=== PATIENT | male | born 1950 | race Caucasian/White ===

== ENCOUNTER 2018-04-21 15:00 | Inpatient (IN) | payer OTHER ==
--- NOTE | 2018-05-23 12:40 | HP ---
AMENDED REPORT NOW INCLUDES COSIGNER DESIGNATION HISTORY AND PHYSICAL: DATE ADMISSION/PROCEDURE: 05/26/18 ATTENDING SURGEON: Dr. Rivas * (DICTATED BY CHAD BENITO) HISTORY OF PRESENT ILLNESS: Mr. 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 He has been authorized for Worker's Compensation for a left total knee arthroplasty, which will be performed on 05/26/18. He has failed conservative management and would like to proceed. PAST MEDICAL HISTORY: Osteoarthritis. PAST SURGICAL HISTORY: 1. Umbilical hernia repair. 2. Multiple surgeries to the right calf. MEDICATIONS: Augmentin for sinus trouble, which was started 2 days ago. Otherwise, no other active medications. ALLERGIES: SULFA ANTIBIOTICS, positive reaction. FAMILY HISTORY: Maternal heart disease and stroke. Paternal heart disease, 3 siblings with diabetes, hypertension, and cancer. SOCIAL HISTORY: The patient works at [employer]. Denies any smoking or illicit drug use. He states he drinks alcohol. He is normally an independent ambulator and right-hand dominant. REVIEW OF SYSTEMS: General: The patient denies fevers, chills or night sweats. No known anesthesia problems. HEENT: The patient admits to sinus headaches. Denies any lightheadedness or syncopal episodes. Admits to runny nose. Cardiothoracic: The patient denies any chest pain or heart palpitations. Pulmonary: The patient denies any shortness of breath with exertion, chronic cough, or COPD. GI: The patient denies any nausea, vomiting, diarrhea, or constipation. : The patient denies any nocturia, urinary frequency, or urgency. MSK: The patient denies any chronic or intermittent back pain or fractures. Neuro: The patient denies any paresthesias, numbness, or seizures. Integument: The patient denies any abrasions, lesions or rashes, lumps or open sores. PHYSICAL EXAMINATION GENERAL: The patient is alert and oriented x3. Appropriate mood and affect, appropriate dress and hygiene. HEENT: Normocephalic, atraumatic. Hearing and vision are grossly intact. PULMONARY: Lungs are clear to auscultation bilaterally. No wheezes or rales. CARDIO: Regular rate and rhythm, normal S1, S2. No appreciable S3 or S4. No murmurs, rubs, or gallops. MSK: Left lower extremity: Inspection of left lower extremity reveals no erythema or ecchymosis. Skin is warm, dry and intact. He has a moderate effusion about the knee. Tenderness along the medial and lateral joint line. Range of motion is full extension to 100 degrees, flexion with pain. He has no varus or valgus instability. No anterior posterior drawer instability or pain. He is neurovascularly intact distally with 2+ dorsalis pedis pulse. IMPRESSION: Left knee post-traumatic osteoarthritis. PLAN: To the OR for left total knee arthroplasty to be performed by Dr. Emi Rivas on 05/26/18. The patient will follow up 10 to 14 days postop for suture removal and followup. The risks and complications of the surgery were discussed with the patient and he understood them. CHAD BENITO [id number]/[facility] #: [id number] ERVIN
[2018-05-25] MEDS ORDERED: Buffered Lidocaine 0.9% SYRIN* 5 ML/SYR SYRINGE INTRADERM ONE (12:55)
[2018-05-26] MEDS ORDERED: Tranexamic Acid 1,000 MG in NS 0.9% 50 ML* (outpatient use) IV SCH ×2
[2018-05-26] MEDS ORDERED: Famotidine IV* 10 MG/ML 2 ML (20 mg) IV ONE (06:00)
[2018-05-26] MEDS ORDERED: celeCOXIB CAP* 200 MG PO ONE (06:00)
[2018-05-26] MEDS ORDERED: Dexamethasone IV* 4 MG/ML 1 ML (4 MG) IV SLOW PU ONE (06:00)
[2018-05-26] MEDS ORDERED: Gabapentin CAP(*) 300 MG PO ONE (06:00)
[2018-05-26] MEDS ORDERED: Lactated Ringers 1000 ML Bag* 1,000 ML IV SCH ×2 (06:00→17:00)
[2018-05-26] MEDS ORDERED: Acetaminophen IV 1GM/100ML * 1,000 MG/100 ML VIAL IVPB ONE (06:00)
--- OUTSIDE RECORDS SUMMARY | 2018-05-26 10:47 | XMS REPORT ---
:1950 External Reference #:[id number] Author Organization [employer] Address [address] [place] [address] Phone [phone] Care Team Providers Name Role Phone Leoncio Heredia MD Primary Care Physician Unavailable Payers Type Date Identification Numbers Payment Provider Subscriber Commercial Policy Number: [id number] [employer] Rashid Cameron PayID: [id number] [address] [place] [address] Workers Onset: 2015 Policy Number: Dominic Cameron Compensation [id number] [place] [employer] Name: [phone] [address] PayID: JOSETristen VICKY Noonan [id number] Problems Date Description Provider Status Onset: 02/11/2018 Localized, primary osteoarthritis Emi Rivas M.D. Active Social History Type Date Description Comments Lives With Son Occupation Currently Working ETOH Use Occasionally consumes alcohol Smoking Patient has never smoked Exercise Type/Frequency Exercises sporadically Allergies, Adverse Reactions, Alerts Date Description Reaction Status Severity Comments 02/11/2018 Sulfa Antibiotics active Medications Medication Date Status Form Strength Qnty SIG Indications Ordering Provider Augmentin Active Unknown No Active 02/11/2018 Hx Unknown Medications - 05/18/2018 Medications Administered in Office Medication Date Status Form Strength Qnty SIG Indications Ordering Provider Depomedrol Administered Injection Dirk Navjot, 40MG 018 Savage Depomedrol Administered Injection Emi 40MG 018 Savage Rivas Vital Signs Date Vital Result Comment 05/18/2018 Height 74 inches 6'2" Weight 233.00 lb Heart Rate 84 /min BP Systolic 132 mmHg BP Diastolic 84 mmHg Body Temperature 97.5 F Pain Level 6 BMI (Body Mass Index) 29.9 kg/m2 03/04/2018 Height 74 inches 6'2" Weight 235.00 lb BP Systolic 130 mmHg BP Diastolic 82 mmHg Body Temperature 98.2 F BMI (Body Mass Index) 30.2 kg/m2 02/11/2018 Height 74 inches 6'2" Weight 235.00 lb BP Systolic 123 mmHg BP Diastolic 82 mmHg Respiratory Rate 15 /min Pain Level 5 BMI (Body Mass Index) 30.2 kg/m2 Results Test Date Test Result H/L Range Note Comp Metabolic Panel 05/18/2018 Sodium 142 mmol/L 135-145 Potassium 3.9 mmol/L 3.5-5.0 Chloride 108 mmol/L 101-111 Co2 Carbon Dioxide 26 mmol/L 22-32 Anion Gap 8 mmol/L 2-11 Glucose 97 mg/dL 70-100 Blood Urea Nitrogen 13 mg/dL 6-24 Creatinine 0.82 mg/dL 0.67-1.17 BUN/Creatinine Ratio 15.9 8-20 Calcium 9.1 mg/dL 8.6-10.3 Total Protein 7.4 g/dL 6.4-8.9 Albumin 4.3 g/dL 3.2-5.2 Globulin 3.1 g/dL 2-4 Albumin/Globulin Ratio 1.4 1-3 Total Bilirubin 0.60 mg/dL 0.2-1.0 Alkaline Phosphatase 71 U/L 34-104 Alt 25 U/L 7-52 Ast 24 U/L 13-39 Egfr Non- 94.0 >60 Egfr 113.7 >60 1 CBC Auto Diff 05/18/2018 White Blood Count 9.1 10^3/uL 3.5-10.8 Red Blood Count 4.81 10^6/uL 4.00-5.40 Hemoglobin 14.6 g/dL 14.0-18.0 Hematocrit 43 % 42-52 Mean Corpuscular Volume 89 fL 80-94 Mean Corpuscular Hemoglobin 30 pg 27-31 Mean Corpuscular HGB Conc 34 g/dL 31-36 Red Cell Distribution Width 14 % 10.5-15 Platelet Count 308 10^3/uL 150-450 Mean Platelet Volume 8.3 fL 7.4-10.4 Abs Neutrophils 5.9 10^3/uL 1.5-7.7 Abs Lymphocytes 2.0 10^3/uL 1.0-4.8 Abs Monocytes 0.8 10^3/uL 0-0.8 Abs Eosinophils 0.4 10^3/uL 0-0.6 Abs Basophils 0.1 10^3/uL 0-0.2 Abs Nucleated RBC 0 10^3/uL Granulocyte % 64.3 % 38-83 Lymphocyte % 22.4 % Low 25-47 Monocyte % 8.4 % High 0-7 Eosinophil % 3.9 % 0-6 Basophil % 1.0 % 0-2 Nucleated Red Blood Cells % 0.1 Inr/Protime 05/18/2018 Inr 0.97 0.77-1.02 Laboratory test finding 05/18/2018 Partial Thrombo Time 35.0 seconds 26.0 -36.3 PTT Urinalysis Profile 05/18/2018 Urine Color Yellow Urine Appearance Cloudy Urine Specific [place] 1.023 1.010-1.030 Urine pH 5.0 5-9 Urine Urobilinogen Negative Negative Urine Ketones Negative Negative Urine Protein Negative Negative Urine Leukocytes Negative Negative Urine Blood Negative Negative Urine Nitrite Negative Negative Urine Bilirubin Negative Negative Urine Glucose Negative Negative Type & Screen 05/18/2018 Patient Blood Type O Positive Antibody Screen NEGATIVE 1 Because ethnic data is not always readily available, this report includes an eGFR for both -Americans and non- Americans. The National Kidney Disease Education Program (NKDEP) does not endorse the use of the MDRD equation for patients that are not between the ages of 18 and 70, are , have extremes of body size, muscle mass, or nutritional status, or are non- or non-. According to the National Kidney Foundation, irrespective of diagnosis, the stage of the disease is based on the level of kidney function: Stage Description GFR(mL/min/1.73 m(2)) 1 Kidney damage with normal or decreased GFR 90 2 Kidney damage with mild decrease in GFR 60-89 3 Moderate decrease in GFR 30-59 4 Severe decrease in GFR 15-29 5 Kidney failure <15 (or dialysis) Procedures Date CPT Code Description Status 03/04/2018 54936 Inject/Drain Joint/Bursa Major W/O US Completed Encounters Type Date Location Provider CPT E/M Dx Office Visit 02/11/2018 [facility] M.D. 90930 M17.32 3:00p Jadiel M17.32 W18.49xA W18.49xA M25.462 M25.562 M17.12 Plan of Care Future Appointment(s):05/26/2018 2:30 pm - MEAGHAN Wang at [facility].05/26/2018 2:30 pm - CHAD Livingston at [facility].05/26/2018 2:30 pm - Emi Rivas M.D. at [facility].05/18/2018 - Emi Rivas M.D.M17.32 Unilateral post- traumatic osteoarthritis, left kneeFollow up:Follow up: to ORM25.462 Effusion , left kneeM25.562 Pain in left knee
--- OUTSIDE RECORDS SUMMARY | 2018-05-26 10:48 | XMS REPORT ---
:1950 External Reference #:[id number] Author Organization [employer] Address [address] [place] [address] Phone [phone] Care Team Providers Name Role Phone Leoncio Heredia MD Primary Care Physician Unavailable Payers Type Date Identification Numbers Payment Provider Subscriber Commercial Policy Number: [id number] [employer] Rashid Cameron PayID: [id number] [address] [place] [address] Workers Onset: 2015 Policy Number: Dominic Cameron Compensation [id number] [place] [employer] Name: [phone] [address] PayID: JOSETristen VICKY Noonan [id number] Problems Date Description Provider Status Onset: 02/11/2018 [...] BMI (Body Mass Index) 30.2 kg/m2 Results Description No Information Procedures Date CPT Code Description Status 03/04/2018 52414 Inject/Drain Joint/Bursa Major W/O US Completed Encounters Type Date Location Provider CPT E/M Dx Office Visit 02/11/2018 [facility] M.D. 77897 M17.32 3:00p [facility] M17.32 W18.49xA W18.49xA M25.462 M25.562 M17.12 Plan of Care Future Appointment(s):05/26/2018 2:30 pm - EMAGHAN Wang at [facility]05/26/2018 2:30 pm - CHAD Livingston at [facility]05/26/2018 2:30 pm - Emi Rivas M.D. at [facility]05/18/2018 - Emi Rivas M.D.M17.32 Unilateral post- traumatic osteoarthritis, left kneeFollow up:Follow up: to ORM25.462 Effusion , left kneeM25.562 Pain in left knee
[2018-05-26] MEDS ORDERED: Famotidine IV* 10 MG/ML 2 ML (20 mg) ONE (11:45)
[2018-05-26] MEDS ORDERED: Dexamethasone IV* 4 MG/ML 1 ML (4 MG) ONE (11:45)
[2018-05-26] MEDS ORDERED: celeCOXIB CAP* 100 MG ONE (11:45)
[2018-05-26] MEDS ORDERED: ceFAZolin 2 GM PREMIX in ORs 2 GM/50 ML BAG IVPB ONE (11:46)
[2018-05-26] MEDS ORDERED: Gabapentin CAP(*) 300 MG ONE (11:46)
[2018-05-26] MEDS ORDERED: Midazolam* 1 MG/ML 5 ML VIAL (5 MG) ONE (12:54)
[2018-05-26] MEDS ORDERED: fentaNYL* 50 MCG/ML 2 ML VIAL (100 MCG VIAL) ONE (12:54)
[2018-05-26] MEDS ORDERED: KETAMINE HCL* 50 MG/ML 10 ML VIAL ONE (12:54)
[2018-05-26] MEDS ORDERED: Bupivacaine 0.5% SDV PF* 30ML VIAL ONE ×2 (12:55→13:18)
[2018-05-26] MEDS ORDERED: Ondansetron INJ* 2 MG/ML VIAL ONE (12:56)
[2018-05-26] MEDS ORDERED: ROPIVACAINE 5 MG/ML 30 ML BTL (0.5%) ONE (13:16)
[2018-05-26] MEDS ORDERED: Naloxone* 0.4 MG/ML 1 ML VIAL IV PRN (14:13)
[2018-05-26] MEDS ORDERED: fentaNYL* 50 MCG/ML 2 ML VIAL (100 MCG VIAL) IV PRN (14:13)
[2018-05-26] MEDS ORDERED: Acetaminophen IV 1GM/100ML * 100 ML ONE (14:13)
[2018-05-26] MEDS ORDERED: DiMENhydriNATE IV* 50 MG/ML VIAL IV PUSH PRN (14:13)
[2018-05-26] MEDS ORDERED: HYDROmorphone INJ1* 1 MG/ML SYRINGE IV PRN (14:13)
[2018-05-26] MEDS ORDERED: Scopolamine 1.5 mg* PATCH TRANSDERM PRN (14:13)
[2018-05-26] MEDS ORDERED: Ondansetron INJ* 2 MG/ML VIAL IV PRN ×2 (14:13→16:18)
[2018-05-26] MEDS ORDERED: diPHENhydraMINE IV* 50 MG/ML 1 ml VIAL (BENADRYL) IV PRN (16:18)
[2018-05-26] MEDS ORDERED: traMADol TAB* 50 MG PO PRN (16:18)
[2018-05-26] MEDS ORDERED: Ondansetron ODT TAB* 4 MG PO PRN (16:18)
[2018-05-26] MEDS ORDERED: Polyethylene Glycol 3350* 17 GM PACKET PO PRN (16:18)
[2018-05-26] MEDS ORDERED: oxyCODONE/Acetamin 5/325 MG* TAB PO PRN (16:18)
[2018-05-26] MEDS ORDERED: Bisacodyl SUPP* 10 MG SUPP PR PRN (16:18)
[2018-05-26] MEDS ORDERED: Magnesium Hydroxide LIQ* 30 ML UDC PO PRN (16:18)
[2018-05-26] MEDS ORDERED: Warfarin TAB(*) 6 MG PO ONE (21:00)
[2018-05-26] MEDS: oxyCODONE TAB* 5 MG TAB PO PRN (21:01)
[2018-05-26] MEDS: Docusate CAP* 100 MG PO SCH (21:48)
[2018-05-26] MEDS: Magnesium Hydroxide LIQ* 30 ML UDC PO SCH (21:49)
[2018-05-26] MEDS: ceFAZolin 1 GM in Dextrose (*) 1 GM/50 ML BAG IVPB SCH (21:50)
[2018-05-26] MEDS: Morphine VIAL* 4 MG/ML VIAL (1 ml vial) IV PRN (22:46)
[2018-05-26] MEDS: oxyCODONE/Acetamin 5/325 MG* TAB PO PRN (23:19)
[2018-05-27] MEDS: Acetaminophen TAB* 325 MG PO SCH ×4 (00:13→23:45)
[2018-05-27] MEDS: oxyCODONE TAB* 5 MG TAB PO PRN ×3 (01:27→12:29)
[2018-05-27] MEDS: Morphine VIAL* 4 MG/ML VIAL (1 ml vial) IV PRN ×4 (02:35→23:41)
[2018-05-27] MEDS: Cyclobenzaprine TAB* 10 MG PO PRN ×2 (02:35→18:48)
[2018-05-27] MEDS: oxyCODONE/Acetamin 5/325 MG* TAB PO PRN ×4 (03:48→20:40)
[2018-05-27] MEDS: ceFAZolin 1 GM in Dextrose (*) 1 GM/50 ML BAG IVPB SCH ×2 (05:28→14:13)
[2018-05-27 06:07] LABS: Hematocrit 40 % (42-52); Hemoglobin 13.7 g/dl (14.0-18.0); Mean Platelet Volume 8.3 fL (7.4-10.4); Platelet Count 273 10^3/ul (150-450)
[2018-05-27 06:18] LABS: INR 0.97 (0.77-1.02)
[2018-05-27 06:26] LABS: Calcium 8.9 mg/dL (8.6-10.3); EGFR Non-African American 96.7 (>60); Potassium 4.1 mmol/L (3.5-5.0)
[2018-05-27] MEDS: Docusate CAP* 100 MG PO SCH ×2 (08:12→20:43)
[2018-05-27] MEDS: Magnesium Hydroxide LIQ* 30 ML UDC PO SCH ×2 (08:13→20:43)
--- NOTE | 2018-05-27 10:53 | PN ---
Progress Note - Progress Note Date of Service: 05/27/18 SOAP: Subjective: []Patient seen OOB in chair, doing well. Denies SOB, CP, nausea. Pain well managed. Objective: [] Vital Signs Temp 97.5 F 05/27/18 07:51 Pulse 58 05/27/18 07:51 Resp 18 05/27/18 10:26 BP 126/72 05/27/18 07:51 Pulse Ox 97 05/27/18 07:51 Intake & Output 05/26/18 05/27/18 05/27/18 18:59 06:59 18:59 Intake Total 1200 500 Output Total 1175 625 Balance 25 -125 Weight 236 lb Intake: IV Fluids 1200 LR 1200 Oral 500 Output: Newton 1175 625 Laboratory Results - last 24 hr 05/27/18 05/27/18 05/27/18 05:57 05:57 05:57 Hgb 13.7 L Hct 40 L Plt Count 273 MPV 8.3 INR (Anticoag Therapy) 0.97 Sodium 137 Potassium 4.1 Chloride 105 Carbon Dioxide 24 Anion Gap 8 BUN 16 Creatinine 0.80 Est GFR ( Amer) 117.0 Est GFR (Non-Af Amer) 96.7 BUN/Creatinine Ratio 20.0 Glucose 154 H Calcium 8.9 Left knee dressings dry and intact Calf NT and soft +DF/PF left ankle sensation and circulation intact distally Assessment: []s/p LTK, POD #1 Plan: []PT OT WBAT LLE Coumadin with Lovenox bridge- 8 mg today Probable discharge home tomorrow with VNS Follow up as scheduled 10-[address] Rivas
--- NOTE | 2018-05-27 11:15 | OP ---
OPERATIVE REPORT: DATE OF OPERATION: 05/26/18 DATE OF : 54 SURGEON: Emi Rivas MD. LOCAL TELEPHONE OPERATOR: CHAD Wills. Ms. Broussard did help throughout the procedure with preparation of the leg, wound retraction, manipul ation of the knee, and wound closure. ANESTHESIOLOGIST: Dr. Solano. ANESTHESIA: Spinal. PRE-OP DIAGNOSIS: Severe endstage degenerative osteoarthritis of the left knee, this is posttraumati c. POST-OP DIAGNOSIS: Severe endstage degenerative osteoarthritis of the left knee, this is posttraumat ic. OPERATIVE PROCEDURE: Left total knee arthroplasty. TOURNIQUET TIME: 59 minutes. COMPLICATIONS: None. SPECIMEN: Bone and cartilage from the left knee joint sent to Pathology. HARDWARE USED: This is cemented [employer] total knee arthroplasty hardware. Two packages of S implex bone cement. For the femur, a left size 7 Legion posterior stabilized femoral component. For the femur, a left size 7 Oxinium Legion posterior stabilized femoral component. For the tibia, a si ze 6 left Dahiana II tibial base plate. For the insert, a 9 mm posterior stabilized articular insert size 5/6 and for the patella a size 38, 3-peg all poly patella. BRIEF HISTORY/INDICATIONS: Mr. Cameron is a 68-year-old gentleman with years of increasingly severe l eft knee pain and deformity. He had a work injury years ago and developed posttraumatic arthritis wi th quite severe flexion contracture. Radiographs showed [id number] contact. He failed conservative treatment with antiinflammatories, pain medication, intraarticular injections, and physical therapy. Due to continued pain and decreased quality of life, he elected to undergo left total knee arthropl asty. Informed consent was obtained from the patient. He understood the risks of surgery included b ut were not limited to bleeding, infection, damage to nearby structures, continued pain, need for fur ther surgery, intraoperative fracture, nerve palsy, hardware failure or loosening, knee stiffness, lo ss of motion, stroke, heart attack, blood clot, and . He wished to proceed. INTRAOPERATIVE FINDINGS: Intraoperatively, the patient was noted to have severe endstage arthritis w ith complete loss of cartilage in all 3 compartments. The patient was noted to have severe flexion c ontracture of 20 degrees at the start of the case and flexion to 90 degrees. This was corrected to f ull extension and 125 degrees of flexion by the end of the case. DESCRIPTION OF PROCEDURE: Mr. Cameron was identified in the preanesthesia unit. His left lower extrem ity was marked as the correct operative site. Informed consent was signed and placed in the chart. Patient was taken to the operating room and placed under spinal anesthesia. A Newton catheter was vinny anny. Tourniquet was placed on the left thigh. Left lower extremity was prepped and draped in the [facility] sterile fashion. Preop time-out was made to correctly identify the patient, side, and site. Alivia ropriate perioperative antibiotics were given within 1 hour of incision. Tourniquet was inflated and total tourniquet time for this procedure was 59 minutes. A midline incis ion was made with a 10 blade and carried down to the extensor mechanism. A new 10 blade was used to make a standard medial parapatellar arthrotomy. The patella was difficult to sublux laterally. Ther efore, the patella was everted. Extensive osteophyte formation was removed from around the patella. A 5 mm of patellar bone and cartilage was carefully removed using an oscillating saw. At this point, I was able to laterally sublux the patella. The knee was quite stiff and could be flexed to 85 degr ees only. The anterior horn of the lateral meniscus and ACL were sharply released. A drill was used to enter the distal femur. Intramedullary distal femoral cutting guide was pinned on the distal fem ur. Oscillating saw was used to make the distal femoral cut. An additional 2 mm of distal femur was taken because of the chronic flexion contracture. Next, the external rotation guide was pinned on t he distal femur. Distal femur was sized to a size 7. Size 7 multi-cutting jig was pinned on the dis olga femur. Oscillating saw was used to make the appropriate 4 chamfer cuts. PCL was completely released. The tibia was subluxed anteriorly. Extramedullary tibial cutting guide was pinned on the proximal tibia. Oscillating saw was used to make the proximal tibial cut perpendi cular to the mechanical axis of the tibia. The bone was carefully removed. The knee was brought out into full extension. The spacer block had good fit with the knee in full extension. Medial and late ral ligaments were well balanced. Flexion and extension gaps were well balanced. The knee was flexe d up. Lamina operations consultant was placed both medially and laterally. Any remaining meniscus was carefully removed using electrocautery. Curved osteotome was used to remove extensive posterior osteophytes. Tibial tray and drop xiao were placed and confirmed a satisfactory tibial cut. A size 7 left femoral trial was impacted on to the distal femur and it had excellent fit and stabilit y. The box for the posterior stabilized implant was prepared using a reamer and box cut osteotome. Size 6 tibial tray trial with a 9- mm insert trial was placed and the knee was taken through range of motion. The knee had full extension to 125 degrees of flexion with satisfactory patellofemoral trac rober. The patella was everted. Five additional millimeters of patellar bone and cartilage were care fully removed using an oscillating saw. The patient was sized to a size 38. Three peg holes were dr illed through the size 38 guide. 38 trial patella was placed and the knee was taken through range of motion. There was satisfactory patellofemoral tracking. All trials were carefully removed. The ti cheyanne was subluxed anteriorly and sized to a size 6. Proximal tibia was prepared using a size 6 keel p unch. All bony cut surfaces were copiously irrigated with sterile saline and dried. Final implants were daniel ented into place starting with the tibia followed by the femur and last the patella. A 9-mm insert t rial was placed and the knee was brought out into full extension. Tourniquet was turned down at 59 m inutes. The knee was copiously irrigated with sterile saline. Electrocautery was used to obtain met iculous hemostasis. Once the cement had fully cured, the insert trial was removed. Any excess cemen t was removed from around the capsule and tendon. Final insert chosen was a 9-mm posterior stabilized articular insert size 5/6. This was locked into position on the tibial tray without difficulty. Sta bility of the insert was checked and rechecked and noted to be stable. The knee was once again copiously irrigated with sterile saline. The extensor mechanism was closed u sing interrupted #1 Vicryls. The rest of the incision was closed in a layered fashion using 0 and 2- 0 Vicryls. Skin was closed using running 3-0 nylon suture. Sterile Xeroform, 4x4s, and Webril were used to cover the incision. Lito wrap and cold pack were placed over this. Patient's anesthesia was reversed without difficulty. He was taken to the PACU in stable condition. Intended weightbearing wi ll be weightbearing as tolerated. Intended DVT prophylaxis will be Coumadin with a Lovenox bridge. [id number]/[facility] #: [id number]
[2018-05-27] MEDS: Enoxaparin(*) 40 MG/0.4 ML SYR SUBCUT SCH (12:24)
[2018-05-27] MEDS ORDERED: Warfarin TAB(*) 4 MG PO ONE (17:00)
[2018-05-28] MEDS: oxyCODONE TAB* 5 MG TAB PO PRN ×3 (00:29→11:15)
[2018-05-28] MEDS: oxyCODONE/Acetamin 5/325 MG* TAB PO PRN ×3 (01:57→20:27)
[2018-05-28] MEDS: Morphine VIAL* 4 MG/ML VIAL (1 ml vial) IV PRN (02:03)
[2018-05-28] MEDS: Cyclobenzaprine TAB* 10 MG PO PRN (02:05)
[2018-05-28 05:52] LABS: Hematocrit 34 % (42-52); Hemoglobin 11.9 g/dl (14.0-18.0); Mean Platelet Volume 8.6 fL (7.4-10.4); Platelet Count 229 10^3/ul (150-450)
[2018-05-28 05:59] LABS: INR 1.59 (0.77-1.02)
[2018-05-28] MEDS: Docusate CAP* 100 MG PO SCH ×2 (07:50→20:28)
--- NOTE | 2018-05-28 07:54 | PN ---
Progress Note - Progress Note Date of Service: 05/28/18 SOAP: Subjective: resting comfortably with knee pain well controlled Objective: Vital Signs Temp Pulse Resp BP Pulse Ox 99.9 F 80 16 111/61 98 05/28/18 03:09 05/28/18 03:15 05/28/18 07:01 05/28/18 03:09 05/28/18 03:24 Laboratory Last Values Hgb 11.9 g/dl (14.0-18.0) L 05/28/18 05:13 Hct 34 % (42-52) L 05/28/18 05:13 Plt Count 229 10^3/ul (150-450) 05/28/18 05:13 MPV 8.6 fL (7.4-10.4) 05/28/18 05:13 INR (Anticoag Therapy) 1.59 (0.77-1.02) H 05/28/18 05:13 Sodium 137 mmol/L (135-145) 05/27/18 05:57 Potassium 4.1 mmol/L (3.5-5.0) 05/27/18 05:57 Chloride 105 mmol/L (101-111) 05/27/18 05:57 Carbon Dioxide 24 mmol/L (22-32) 05/27/18 05:57 Anion Gap 8 mmol/L (2-11) 05/27/18 05:57 BUN 16 mg/dL (6-24) 05/27/18 05:57 Creatinine 0.80 mg/dL (0.67-1.17) 05/27/18 05:57 Est GFR ( Amer) 117.0 (>60) 05/27/18 05:57 Est GFR (Non-Af Amer) 96.7 (>60) 05/27/18 05:57 BUN/Creatinine Ratio 20.0 (8-20) 05/27/18 05:57 Glucose 154 mg/dL (70-100) H 05/27/18 05:57 Calcium 8.9 mg/dL (8.6-10.3) 05/27/18 05:57 incision: c/d; dressing changed PE: NVI Assessment: POD#2 left TKA Plan: 1) Lovenox/Coumadin for DVT prophylaxis 2) Home today; f/u with Dr. Rivas in 2 weeks
[2018-05-28] MEDS: Magnesium Hydroxide LIQ* 30 ML UDC PO SCH ×2 (07:55→20:28)
[2018-05-28] MEDS: Acetaminophen TAB* 325 MG PO SCH ×2 (07:55→17:01)
[2018-05-28] MEDS: Enoxaparin(*) 40 MG/0.4 ML SYR SUBCUT SCH (11:15)
[2018-05-28] MEDS ORDERED: Iohexol 350* (CONTRAST) 500 ML MDV IV ONE (15:07)
[2018-05-28] MEDS ORDERED: Warfarin TAB(*) 4 MG PO ONE (17:00)
[2018-05-28] MEDS ORDERED: Heparin DRIP 25,000 UNITS(*) 25,000 UNITS/500 ML BAG IV SCH ×2 (17:00→18:45)
[2018-05-28] MEDS ORDERED: Heparin VIAL(*) 5000 UNITS/ML VIAL (FIVE THOUSAND) SUBCUT PRN (17:04)
[2018-05-28] MEDS ORDERED: Enoxaparin(*) 150 MG/ML 1 ML SYRINGE SUBCUT SCH (18:00)
[2018-05-28] MEDS ORDERED: Heparin VIAL(*) 5000 UNITS/ML VIAL (FIVE THOUSAND) IV PRN (18:40)
[2018-05-28 18:48] LABS: Albumin 3.3 g/dL (3.2-5.2); Albumin/Globulin Ratio 1.1 (1-3); BUN/Creatinine Ratio 16.9 (8-20); Calcium 7.9 mg/dL (8.6-10.3); EGFR Non-African American 101.1 (>60); Globulin 2.9 g/dL (2-4); Potassium 3.8 mmol/L (3.5-5.0); Total Bilirubin 0.6 mg/dL (0.2-1.0); Total Protein 6.2 g/dL (6.4-8.9)
[2018-05-28 18:51] LABS: ABS Basophils 0.1 10^3/ul (0-0.2); ABS Eosinophils 0.3 10^3/ul (0-0.6); ABS Lymphocytes 1.6 10^3/ul (1.0-4.8); ABS Monocytes 1.3 10^3/ul (0-0.8); ABS Nucleated RBC 0 10^3/ul; Eosinophil % 2.8 % (0-6); Hematocrit 35 % (42-52); Hemoglobin 12.1 g/dl (14.0-18.0); Lymphocyte % 13.1 % (25-47); Mean Corpuscular HGB Conc 35 g/dl (31-36); Mean Corpuscular Hemoglobin 31 pg (27-31); Mean Corpuscular Volume 88 fL (80-94); Mean Platelet Volume 8.3 fL (7.4-10.4); Nucleated Red Blood Cells % 0; Platelet Count 230 10^3/ul (150-450); Red Blood Count 3.96 10^6/ul (4.00-5.40); Red Cell Distribution Width 14 % (10.5-15); White Blood Count 12.3 10^3/ul (3.5-10.8)
--- NOTE | 2018-05-28 22:33 | CONS ---
ADDENDUM NOW INCLUDED ON THIS REPORT CC: Dr. Rivas; Dr. Mccloud; Dr. Heredia; Dr. Mcknight * CONSULTATION REPORT: DATE OF CONSULT: 05/28/18 PRIMARY CARE PROVIDER: Dr. Heredia. REQUESTING PHYSICIAN: Dr. Mccloud from Orthopedic Surgery. REASON FOR CONSULT: Acute onset of shortness of breath and desaturations. CHIEF COMPLAINT: None. HISTORY OF PRESENT ILLNESS: Rashid Cameron is a 68-year-old male, status post elective left knee replacement due to osteoarthritis by Dr. Rivas on 05/26/18. Today, the patient was noted to have low oxygen saturations. The patient himself does not complain of shortness of breath or chest pain. He appears slightly lethargic and he complains of being "not fully awake." Currently, he requires oxygen at 2 L and his oxygen saturation ranges anywhere between 90% to 95%. Dr. Mccloud requested the medicine service to be involved with evaluation of the patient's hypoxemia. The patient himself stated that although he does not use oxygen or CPAP at night , he does snore a lot and his son who lives with him complains about his snoring at night. He does not have any known history of lung disease or heart disease. PAST MEDICAL HISTORY: Osteoarthritis. PAST SURGICAL HISTORY: Umbilical hernia repair and multiple surgeries to the right calf. CURRENT MEDICATIONS: Include: 1. Acetaminophen on a p.r.n. basis. 2. Dulcolax on a p.r.n. basis. 3. Flexeril 10 mg t.i.d. p.r.n. 4. Benadryl on a p.r.n. basis IV, which the patient had not received. 5. Colace 100 mg b.i.d. 6. Lovenox 40 mg subcu daily. 7. Lactulose 30 mL on a p.r.n. basis. 8. Milk of magnesia on a p.r.n. basis. 9. Morphine 2 mg every 2 hours p.r.n. Please note that the patient received 4 doses of morphine over the past 12 hours. 10. Zofran on a p.r.n. basis. 11. Oxycodone 10 mg every 4 hours p.r.n. No doses of oxycodone were administered today. 12. Percocet on a p.r.n. basis. 13. MiraLAX on a p.r.n. basis. 14. Ultram 50 mg every 6 hours p.r.n. 15. Coumadin 8 mg daily. ALLERGIES: SULFA. FAMILY HISTORY: Positive for mother with history of heart disease and stroke. Father with history of diabetes, hypertension. SOCIAL HISTORY: The patient works at [email or web address] in [place]. There is no history of smoking or drug use. He lives with his son, Rashid Cameron Jr., who is his surrogate. REVIEW OF SYSTEMS: The patient complains of postoperative pain in the left leg that currently is rather well controlled. He complains of feeling lethargic and "out of sorts." Denies any chest pain, shortness of breath, or cough. Denies any abdominal pain. All the remaining 12 systems were reviewed with the patient and were otherwise negative. PHYSICAL EXAM: Blood pressure of 136/74, heart rate of 95 and regular, respiratory rate 18, oxygen saturation 83% on room air and 95% on 2 L of oxygen via nasal cannula, temperature of 99.0. General: The patient is a very pleasant 68-year-old male, who was somewhat difficult to awake during the evaluation and appears slightly lethargic, but otherwise he is oriented x3 and in no acute distress. HEENT: Head: Atraumatic, normocephalic. Eyes: Pupils are equal and reactive to light and accommodation. Oropharynx clear. Mucosa moist. Neck: Supple. No JVD. No bruits bilaterally. Cardiovascular: Regular rate and rhythm. No murmur. Respiratory: Fine crackles at bilateral bases, otherwise clear. Abdomen: Soft, nontender. Bowel sounds are present in all 4 quadrants. There is umbilical hernia present of approximately 4 cm in diameter, nonreducible, but nontender. Extremities: There is +1 pitting pedal edema on the left and the left knee is in a Cryo unit. The right ankle is not edematous. Good and palpable pulses bilaterally. There is no clubbing or cyanosis in bilateral feet. On evaluation of the skin, the patient's postoperative knee was not undressed for inspection. Apart from that, there are no obvious rashes or ecchymotic areas noted. Neuro Evaluation: Speech is clear. Cranial nerves II through XII are grossly intact. Motor strength is 5/5 bilaterally. LABORATORY DATA: From today showed hemoglobin of 11.9, hematocrit of 34, and platelets of 229. On 05/27/18, sodium of 137, potassium 4.1, chloride 105, carbon dioxide 24, BUN 16, creatinine 0.8. ASSESSMENT AND PLAN: An onset of hypoxemia and lethargy in a patient postoperative day 2, who received multiple narcotics within the past 12 hours. At this point, the differential includes hypercapnic respiratory failure in a patient with undiagnosed sleep apnea versus pulmonary embolism. At this point, although pulmonary embolism is somewhat lower on differential, since the patient does not complain of chest pain, but he is tachycardic and CT angiogram of the chest is going to be obtained and the patient is agreeable. I will also obtain ABG to evaluate for possibility of obstructive sleep apnea in this patient who had received several doses of morphine over the past 12 hours. Although postoperative pneumonia is also in consideration, due to the patient is nontoxic appearing, it is less likely. Nevertheless, CT angiogram of the chest would evaluate for possibility of infiltrates also. It is also possible that the patient developed atelectasis. At this point, incentive spirometry is going to be ordered as well as CT angiogram of the chest and ABG. We will follow up on those results with Dr. Mccloud. Thank you very much for allowing me to see your patient in consultation. We will follow on a daily basis. TIME SPENT: Approximately 65 minutes were spent on evaluation of this patient. ADDENDUM: CC: Dr. Heredia; Dr. Mccloud; Dr. Mcknight; Dr. Rivas CONSULTATION REPORT: Please note that followup ABG showed pH of 7.44 with hypoxemia with normal CO2 level of 32. CT angiogram came back as large burden of predominant right side pulmonary emboli, associated pulmonary infarction involving the lateral basal segment of the right lower lobe. When I came back to reevaluate the patient, the patient was noted to be more confused. He was unable to tell me where he was. He complained of no pain. He felt "really bad," but he could not elaborate further. He was transferred to the intensive care unit for further monitoring. His oxygen saturation was 92% on 2 L of oxygen nasal cannula, but his work of breathing was noted to be significant. At that point, he was placed on Vapotherm to decrease the work of breathing. Also, the thought was that may be his mentation is related to his hypoxemia and that could improve with Vapotherm. This is currently being applied. The patient is otherwise neurologically intact, but we will obtain baseline CT of the brain and check and place the patient on neuro checks. The patient's EKG showed sinus tachycardia with changes associated with PE and right ventricular strain. The patient's remaining parts of evaluation including troponin and complete metabolic panel is pending at the time of this dictation. I discussed the case with Dr. Mcknight, the senior product consultant. The patient is not a candidate for TPA even if he has significant RV strain due to his recent surgery. We have had problems with IV access in this patient and he is going to be placed on Lovenox that was suggested by the senior product consultant. The patient's family, son Juan, as well as Dr. Mccloud were notified about the patient's clinical picture. The patient was signed out to the evening provider on the hospitalist side. [id number]/[facility] #: [id number] A- [id number]/[facility] #: [id number] ERVIN
--- NOTE | 2018-05-28 23:56 | CONS ---
CC: Dr. Heredia; Dr. Mccloud; Dr. Mcknight; Dr. Rivas CONSULTATION REPORT: ADDENDUM: Please note that followup ABG showed pH of 7.44 with hypoxemia with normal CO2 level of 32. CT angiogram came back as large burden of predominant right side pulmonary emboli, associated pulmonary infarction involving the lateral basal segment of the right lower lobe. When I came back to reevaluate the patient, the patient was noted to be more confused. He was unable to tell me where he was. He complained of no pain. He felt "really bad," but he could not elaborate further. He was transferred to the intensive care unit for further monitoring. His oxygen saturation was 92% on 2 L of oxygen nasal cannula , but his work of breathing was noted to be significant. At that point, he was placed on Vapotherm to decrease the work of breathing. Also, the thought was that may be his mentation is related to his hypoxemia and that could improve with Vapotherm. This is currently being applied. The patient is otherwise neurologically intact, but we will obtain baseline CT of the brain and check and place the patient on neuro checks. The patient's EKG showed sinus tachycardia with changes associated with PE and right ventricular strain. The patient's remaining parts of evaluation including troponin and complete metabolic panel is pending at the time of this dictation. I discussed the case with Dr. Mcknight, the machine load clerk. The patient is not a candidate for TPA even if he has significant RV strain due to his recent surgery. We have had problems with IV access in this patient and he is going to be placed on Lovenox that was suggested by the machine load clerk. The patient's family, son Juan, as well as Dr. Mccloud were notified about the patient's clinical picture. The patient was signed out to the evening provider on the hospitalist side. [id number]/[facility] #: [id number] MTDD
--- NOTE | 2018-05-29 00:47 | DS ---
AMENDED REPORT NOW INCLUDES COSIGNER DESIGNATION DISCHARGE SUMMARY: DATE OF ADMISSION: 05/26/18 DATE OF DISCHARGE: 05/28/18 ATTENDING PROVIDER: Dr. Rivas * (DICTATED BY CHAD HOLLIS) PRINCIPAL DIAGNOSIS: End-stage osteoarthritis of left knee. DISCHARGE DIAGNOSIS: End-stage osteoarthritis of left knee. HISTORY OF PRESENT ILLNESS: Mr. Cameron is a 68-year-old gentleman with continued complaints of left knee secondary to end-stage osteoarthritis. He failed conservative treatment and elected to proceed with a left total knee arthroplasty. HOSPITAL COURSE: Mr. Cameron is a 68-year-old gentleman, who was admitted electively to the hospital on 05/26/18 and underwent a left total knee arthroplasty. He tolerated the procedure well. Postoperatively, he was placed on Lovenox and Coumadin for DVT prophylaxis. Postoperative day 1, his H and H was 13 and 40. On postoperative day 2, 11 and 34. His INR went from 0.97 to 1.59 at the time of discharge. He was discharged home in stable condition. DISCHARGE MEDICATIONS: 1. Percocet 5/325 one to two 2 tabs every 4 to 6 hours. 2. Colace 100 mg 2 to 3 tabs daily for constipation. 3. Flexeril 10 mg tabs 2 to 3 times a day for muscle spasms. 4. Coumadin 2 mg tabs take as directed. PHYSICAL EXAM UPON DISCHARGE: His wound was clean and dry and healing well. There are no signs of infection. He was ambulating well with the aid of walker. He had a 2+ dorsal pedis pulse. Intact sensation. He was able to dorsiflex and plantar flex. DISCHARGE DISPOSITION: He was discharged to home in stable condition. DISCHARGE INSTRUCTIONS: He was given Percocet to take every 4 to 6 hours as needed for pain as well as Flexeril for muscle spasms and Colace for constipation. He was given Coumadin for DVT prophylaxis. Coumadin dosing for Wednesday night was 8 mg, Wednesday night 4 mg. VNS will recheck his INR on Wednesday. He will follow up with Dr. Shetty in clinic in 2 weeks. CHAD HOLLIS [id number]/[facility] #: [id number] ERVIN
[2018-05-29] MEDS: Acetaminophen TAB* 325 MG PO SCH (01:10)
[2018-05-29] MEDS: oxyCODONE/Acetamin 5/325 MG* TAB PO PRN ×5 (01:11→21:59)
[2018-05-29 08:09] LABS: ABS Basophils 0.1 10^3/ul (0-0.2); ABS Eosinophils 0.7 10^3/ul (0-0.6); ABS Monocytes 1.1 10^3/ul (0-0.8); ABS Nucleated RBC 0 10^3/ul; Eosinophil % 6.5 % (0-6); Hematocrit 35 % (42-52); Lymphocyte % 18.2 % (25-47); Mean Corpuscular HGB Conc 35 g/dl (31-36); Mean Corpuscular Hemoglobin 31 pg (27-31); Mean Corpuscular Volume 89 fL (80-94); Mean Platelet Volume 8.3 fL (7.4-10.4); Nucleated Red Blood Cells % 0; Platelet Count 209 10^3/ul (150-450); Red Blood Count 3.89 10^6/ul (4.00-5.40); Red Cell Distribution Width 15 % (10.5-15); White Blood Count 10.9 10^3/ul (3.5-10.8)
--- NOTE | 2018-05-29 08:32 | PN ---
Subjective Date of Service: 05/29/18 Interval History: Patient reports he is feeling "much better today". He denies SOB or CP. Denies any confusion. reports some mild pain in knee but reports this is well controlled on current regimen. Objective Active Medications: Bisacodyl (Dulcolax Supp*) 10 mg NE DAILY PRN PRN Reason: constipation Cyclobenzaprine HCl (Flexeril Tab*) 10 mg PO TID PRN PRN Reason: SPASMS Last Admin: 05/28/18 02:05 Dose: 10 mg Diphenhydramine HCl (Benadryl Iv*) 12.5 mg IV Q6H PRN PRN Reason: PRURITIS Docusate Sodium (Colace Cap*) 100 mg PO BID [facility] Last Admin: 05/28/18 20:28 Dose: 100 mg Heparin Sodium (Porcine) (Heparin Vial(*)) 0 units IV .PER PROTOCOL PRN PRN Reason: SEE HEPARIN PROTOCOL Last Admin: 05/28/18 18:58 Dose: 8,050 units Heparin Sodium/Dextrose (Heparin Drip 25,000 Units(*)) 25,000 units in 500 mls @ 0 mls/hr IV PER RATE [facility]; Protocol Last Admin: 05/28/18 18:59 Dose: 39 mls/hr Lactulose (Lactulose*) 30 ml PO Q6H PRN PRN Reason: constipation Magnesium Hydroxide (Milk Of Magnesia Liq*) 30 ml PO BID [facility] Last Admin: 05/28/18 20:28 Dose: Not Given Magnesium Hydroxide (Milk Of Magnesia Liq*) 30 ml PO Q6H PRN PRN Reason: constipation Morphine Sulfate (Morphine Vial*) 2 mg IV Q2H PRN PRN Reason: PAIN - SEVERE Last Admin: 05/28/18 02:03 Dose: 2 mg Ondansetron HCl (Zofran Inj*) 4 mg IV Q6H PRN PRN Reason: nausea Ondansetron HCl (Zofran Odt Tab*) 4 mg PO Q6H PRN PRN Reason: NAUSEA Oxycodone HCl (Roxycodone Tab*) 10 mg PO Q4H PRN PRN Reason: SEVERE PAIN Last Admin: 05/28/18 11:15 Dose: 10 mg Oxycodone/Acetaminophen (Percocet 5/325 Tab*) 1 tab PO Q4H PRN PRN Reason: PAIN Oxycodone/Acetaminophen (Percocet 5/325 Tab*) 2 tab PO Q4H PRN PRN Reason: PAIN Last Admin: 05/29/18 06:04 Dose: 2 tab Pharmacy Profile Note (Coumadin Daily Reminder*) 1 note FOLLOW UP 1700 TRAVIS Last Admin: 05/28/18 18:53 Dose: 1 note Polyethylene Glycol/Electrolytes (Miralax*) 17 gm PO DAILY PRN PRN Reason: Constipation Tramadol HCl (Ultram*) 50 mg PO Q6H PRN PRN Reason: PAIN Last Admin: 05/28/18 20:27 Dose: 50 mg Vital Signs - 8 hr 05/29/18 05/29/18 05/29/18 06:00 06:01 06:04 Temperature Pulse Rate 81 77 Respiratory 21 18 18 Rate Blood Pressure 141/80 (mmHg) O2 Sat by Pulse 100 100 Oximetry 05/29/18 05/29/18 05/29/18 07:00 07:01 07:42 Temperature 98.6 F Pulse Rate 77 76 Respiratory 17 17 Rate Blood Pressure 114/72 (mmHg) O2 Sat by Pulse 99 98 Oximetry 05/29/18 05/29/18 05/29/18 08:00 08:01 08:11 Temperature Pulse Rate 81 87 Respiratory 16 19 Rate Blood Pressure 107/72 (mmHg) O2 Sat by Pulse 97 96 97 Oximetry Oxygen Devices in Use Now: Nasal Cannula - 10 L Appearance: 68 yo male sitting up in bed A+O x3 in NAD, appears comfortable and appropriate Eyes: No Scleral Icterus, PERRLA Ears/Nose/Mouth/Throat: NL Teeth, Lips, Gums, Mucous Membranes Moist Neck: NL Appearance and Movements; NL JVP Respiratory: Symmetrical Chest Expansion and Respiratory Effort, Clear to Auscultation Cardiovascular: NL Sounds; No Murmurs; No JVD, RRR, No Edema Abdominal: NL Sounds; No Tenderness; No Distention Extremities: - - left knee in immobilzer - +2DP pulses b/l Neurological: Alert and Oriented x 3, NL Sensation, NL Muscle Strength and Tone Lines/Tubes/Other Access: Clean, Dry and Intact Peripheral IV Nutrition: Taking PO's Result Diagrams: 05/29/18 07:54 05/29/18 07:54 Assess/Plan/Problems-Billing Assessment: 68 yo male with a 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 Rivas on 05/26/18 who haqd an acute psidoe of confusion and hypoxia found to have a pulmonary embolism. - Patient Problems (1) Status post left knee surgery Comment: - Dispo per Ortho POD #3 - WBAT - pain management, bowel regimen - PT (2) Pulmonary embolism Comment: - CTA showing large burden of predominant right side pulmonary emboli associated with pulmonary infarction - not a canidate for tpa d/t recent knee surgery. was placed on vapotherm last evening -> titrating down, currently on 6L NC maintaining o2 sat 98% - continue to wean O2 - Started on heparin gtt yesterday - PTT elevated heparin gtt being held - INR 5 this am - was given coumadin the last 3 days 6mg, 8mg, 8mg - now supratherapuetic. Plan to DC heparin gtt due to that he is therapuetic on coumadin. Repeat INR in am. Pt may benifit from being switched to a NOAC once INR drifts down - will discuss with patient and ortho - TTE and LE doppler pending - elevated troponins now trending down - ekg showing right heart strain now improving (3) Elevated troponin Comment: see above (4) DVT prophylaxis Comment: Heparin GTT (5) Full code status Status and Disposition: inpatient. if able to wean down o2 - plan to transfer to telemetry.
[2018-05-29 08:45] LABS: INR 5.83 (0.77-1.02)
[2018-05-29] MEDS: Docusate CAP* 100 MG PO SCH ×2 (08:47→19:58)
--- NOTE | 2018-05-29 09:41 | PN ---
Progress Note - Progress Note Date of Service: 05/29/18 SOAP: Subjective: OOB to chair, knee apin well controlled, continues with SOB, denies chest pain Objective: Vital Signs Temp Pulse Resp BP Pulse Ox 98.6 F 85 20 141/86 98 05/29/18 07:42 05/29/18 09:00 05/29/18 09:33 05/29/18 09:00 05/29/18 09:00 Laboratory Last Values WBC 10.9 10^3/ul (3.5-10.8) H 05/29/18 07:54 RBC 3.89 10^6/ul (4.00-5.40) L 05/29/18 07:54 Hgb 12.0 g/dl (14.0-18.0) L 05/29/18 07:54 Hct 35 % (42-52) L 05/29/18 07:54 MCV 89 fL (80-94) 05/29/18 07:54 MCH 31 pg (27-31) 05/29/18 07:54 MCHC 35 g/dl (31-36) 05/29/18 07:54 RDW 15 % (10.5-15) 05/29/18 07:54 Plt Count 209 10^3/ul (150-450) 05/29/18 07:54 MPV 8.3 fL (7.4-10.4) 05/29/18 07:54 Neut % (Auto) 64.4 % (38-83) 05/29/18 07:54 Lymph % (Auto) 18.2 % (25-47) L 05/29/18 07:54 [place] % (Auto) 10.3 % (0-7) H 05/29/18 07:54 Eos % (Auto) 6.5 % (0-6) H 05/29/18 07:54 Baso % (Auto) 0.6 % (0-2) 05/29/18 07:54 Absolute Neuts (auto) 7.0 10^3/ul (1.5-7.7) 05/29/18 07:54 Absolute Lymphs (auto) 2.0 10^3/ul (1.0-4.8) 05/29/18 07:54 Absolute Monos (auto) 1.1 10^3/ul (0-0.8) H 05/29/18 07:54 Absolute Eos (auto) 0.7 10^3/ul (0-0.6) H 05/29/18 07:54 Absolute Basos (auto) 0.1 10^3/ul (0-0.2) 05/29/18 07:54 Absolute Nucleated RBC 0 10^3/ul 05/29/18 07:54 Nucleated RBC % 0 05/29/18 07:54 INR (Anticoag Therapy) 5.83 (0.77-1.02) H* 05/29/18 07:54 APTT 223.0 seconds (26.0-36.3) H* 05/29/18 07:54 Patient Temperature Not Reportable 05/28/18 14:00 ABG pH 7.44 (7.35-7.45) 05/28/18 14:00 ABG pH (Temp Correct) Not Reportable 05/28/18 14:00 ABG pCO2 36 mmHg (35-45) 05/28/18 14:00 ABG pCO2 (Temp Corrct Not Reportable 05/28/18 14:00 ABG pO2 60 mmHg (80-100) L 05/28/18 14:00 ABG pO2 (Temp Correct Not Reportable 05/28/18 14:00 ABG HCO3 25.2 mmol/L (19-31) 05/28/18 14:00 ABG O2 Saturation 94.0 % (95-98) L 05/28/18 14:00 ABG Base Excess 0.7 (-2.0-2.0) 05/28/18 14:00 Respiration Rate Not Reportable 05/28/18 14:00 O2 Delivery Device n/c 05/28/18 14:00 Ventilator Type Not Reportable 05/28/18 14:00 Vent Mode Not Reportable 05/28/18 14:00 FiO2 28 05/28/18 14:00 Inspiratory Time Not Reportable 05/28/18 14:00 PEEP Not Reportable 05/28/18 14:00 Pressure Support Not Reportable 05/28/18 14:00 Pressure Control Not Reportable 05/28/18 14:00 EPAP Not Reportable 05/28/18 14:00 IPAP Not Reportable 05/28/18 14:00 BiPAP Not Reportable 05/28/18 14:00 Sodium 131 mmol/L (135-145) L 05/28/18 18:25 Potassium 3.8 mmol/L (3.5-5.0) 05/28/18 18:25 Chloride 102 mmol/L (101-111) 05/28/18 18:25 Carbon Dioxide 26 mmol/L (22-32) 05/28/18 18:25 Anion Gap 3 mmol/L (2-11) 05/28/18 18:25 BUN 13 mg/dL (6-24) 05/28/18 18:25 Creatinine 0.77 mg/dL (0.67-1.17) 05/28/18 18:25 Est GFR ( Amer) 122.3 (>60) 05/28/18 18:25 Est GFR (Non-Af Amer) 101.1 (>60) 05/28/18 18:25 BUN/Creatinine Ratio 16.9 (8-20) 05/28/18 18:25 Glucose 109 mg/dL (70-100) H 05/28/18 18:25 Calcium 7.9 mg/dL (8.6-10.3) L 05/28/18 18:25 Total Bilirubin 0.60 mg/dL (0.2-1.0) 05/28/18 18:25 AST 21 U/L (13-39) 05/28/18 18:25 ALT 17 U/L (7-52) 05/28/18 18:25 Alkaline Phosphatase 55 U/L (34-104) 05/28/18 18:25 Troponin I 0.16 ng/mL (<0.04) H* 05/29/18 01:43 B-Natriuretic Peptide 29 pg/mL (<=100) 05/28/18 18:25 Total Protein 6.2 g/dL (6.4-8.9) L 05/28/18 18:25 Albumin 3.3 g/dL (3.2-5.2) 05/28/18 18:25 Globulin 2.9 g/dL (2-4) 05/28/18 18:25 Albumin/Globulin Ratio 1.1 (1-3) 05/28/18 18:25 incision: c/d PE: NVI Assessment: POD# 3 left TKA Plan: 1) hospitalist co-managing- PE 2) continue heparin per hospitalist 3) PT/OT- WBAT 4) dressing change Wednesday
[2018-05-29 10:22] LABS: INR 5.9 (0.77-1.02)
[2018-05-29 10:25] LABS: Activated Partial Thrombo Time 206.5 seconds (26.0-36.3)
[2018-05-29 10:35] LABS: BUN/Creatinine Ratio 13.5 (8-20); Calcium 8.1 mg/dL (8.6-10.3); EGFR Non-African American 105.8 (>60); Potassium 3.6 mmol/L (3.5-5.0)
[2018-05-29] MEDS: Magnesium Hydroxide LIQ* 30 ML UDC PO SCH ×2 (10:39→19:59)
[2018-05-29] MEDS: oxyCODONE TAB* 5 MG TAB PO PRN (19:57)
[2018-05-30] MEDS: oxyCODONE TAB* 5 MG TAB PO PRN ×2 (03:16→20:48)
[2018-05-30] MEDS: oxyCODONE/Acetamin 5/325 MG* TAB PO PRN ×3 (05:47→18:00)
[2018-05-30 06:38] LABS: ABS Basophils 0.1 10^3/ul (0-0.2); ABS Eosinophils 0.6 10^3/ul (0-0.6); ABS Lymphocytes 1.5 10^3/ul (1.0-4.8); ABS Neutrophils 7.9 10^3/ul (1.5-7.7); ABS Nucleated RBC 0 10^3/ul; Eosinophil % 5.5 % (0-6); Hematocrit 35 % (42-52); Lymphocyte % 13.5 % (25-47); Mean Corpuscular HGB Conc 35 g/dl (31-36); Mean Corpuscular Hemoglobin 31 pg (27-31); Mean Corpuscular Volume 89 fL (80-94); Mean Platelet Volume 8.4 fL (7.4-10.4); Nucleated Red Blood Cells % 0.1; Platelet Count 219 10^3/ul (150-450); Red Blood Count 3.91 10^6/ul (4.00-5.40); Red Cell Distribution Width 14 % (10.5-15); White Blood Count 11.1 10^3/ul (3.5-10.8)
[2018-05-30 06:57] LABS: BUN/Creatinine Ratio 14.5 (8-20); Calcium 8.2 mg/dL (8.6-10.3); EGFR Non-African American 114.7 (>60); Potassium 3.8 mmol/L (3.5-5.0)
[2018-05-30 07:01] LABS: INR 6.33 (0.77-1.02)
--- NOTE | 2018-05-30 07:44 | PN ---
Progress Note - Progress Note Date of Service: 05/30/18 SOAP: Subjective: Pt. is alert, reports SOB is improved. He was confused this AM when he woke up , believes it is because he has changed rooms several times. He reports the knee pain is controlled. Objective: LLE - dressing changed, inc c/d/i. distally nvi. moderate swelling in leg. Vital Signs: Temp Pulse Resp BP Pulse Ox 99.5 F 96 18 142/82 100 05/30/18 04:08 05/30/18 04:08 05/30/18 05:47 05/30/18 04:08 05/30/18 04:08 Laboratory Results - last 24 hr 05/29/18 05/29/18 05/29/18 07:54 07:54 07:54 WBC 10.9 H RBC 3.89 L Hgb 12.0 L Hct 35 L MCV 89 MCH 31 MCHC 35 RDW 15 Plt Count 209 MPV 8.3 Neut % (Auto) 64.4 Lymph % (Auto) 18.2 L [place] % (Auto) 10.3 H Eos % (Auto) 6.5 H Baso % (Auto) 0.6 Absolute Neuts (auto) 7.0 Absolute Lymphs (auto) 2.0 Absolute Monos (auto) 1.1 H Absolute Eos (auto) 0.7 H Absolute Basos (auto) 0.1 Absolute Nucleated RBC 0 Nucleated RBC % 0 INR (Anticoag Therapy) 5.83 H* APTT 223.0 H* Sodium 135 Potassium 3.6 Chloride 103 Carbon Dioxide 24 Anion Gap 8 BUN 10 Creatinine 0.74 Est GFR ( Amer) 128.0 Est GFR (Non-Af Amer) 105.8 BUN/Creatinine Ratio 13.5 Glucose 101 H Calcium 8.1 L 05/29/18 05/29/18 05/30/18 09:40 12:20 06:27 WBC 11.1 H RBC 3.91 L Hgb 12.0 L Hct 35 L MCV 89 MCH 31 MCHC 35 RDW 14 Plt Count 219 MPV 8.4 Neut % (Auto) 71.3 Lymph % (Auto) 13.5 L [place] % (Auto) 8.8 H Eos % (Auto) 5.5 Baso % (Auto) 0.9 Absolute Neuts (auto) 7.9 H Absolute Lymphs (auto) 1.5 Absolute Monos (auto) 1.0 H Absolute Eos (auto) 0.6 Absolute Basos (auto) 0.1 Absolute Nucleated RBC 0 Nucleated RBC % 0.1 INR (Anticoag Therapy) 5.90 H* APTT 206.5 H* 51.2 H Sodium Potassium Chloride Carbon Dioxide Anion Gap BUN Creatinine Est GFR ( Amer) Est GFR (Non-Af Amer) BUN/Creatinine Ratio Glucose Calcium 05/30/18 05/30/18 06:27 06:27 WBC RBC Hgb Hct MCV MCH MCHC RDW Plt Count MPV Neut % (Auto) Lymph % (Auto) [place]cl[place] % (Auto) Eos % (Auto) Baso % (Auto) Absolute Neuts (auto) Absolute Lymphs (auto) Absolute Monos (auto) Absolute Eos (auto) Absolute Basos (auto) Absolute Nucleated RBC Nucleated RBC % INR (Anticoag Therapy) 6.33 H* APTT Sodium 134 L Potassium 3.8 Chloride 103 Carbon Dioxide 25 Anion Gap 6 BUN 10 Creatinine 0.69 Est GFR ( Amer) 138.8 Est GFR (Non-Af Amer) 114.7 BUN/Creatinine Ratio 14.5 Glucose 120 H Calcium 8.2 L Assessment: 68 yo M pod 4 s/p LTKA with postop complication of PE Plan: continue anticoagulation per hospitalist group - INR above 6 currently. pt/ot today wbat lle prn analgesia
[2018-05-30] MEDS: Magnesium Hydroxide LIQ* 30 ML UDC PO SCH ×2 (08:08→20:47)
[2018-05-30] MEDS: Docusate CAP* 100 MG PO SCH ×2 (08:08→20:47)
--- NOTE | 2018-05-30 12:15 | PN ---
Subjective Date of Service: 05/30/18 Interval History: A+O x3 68 yo male sitting up in bed in [facility]. Spoke with Santhosh (son) over the phone and discussed plan - he will think about which NOAC they would like to start. Discussed the benefits and risk of anticoagulation. Objective Active Medications: Bisacodyl (Dulcolax Supp*) 10 mg UT DAILY PRN PRN Reason: constipation Cyclobenzaprine HCl (Flexeril Tab*) 10 mg PO TID PRN PRN Reason: SPASMS Last Admin: 05/28/18 02:05 Dose: 10 mg Diphenhydramine HCl (Benadryl Iv*) 12.5 mg IV Q6H PRN PRN Reason: PRURITIS Docusate Sodium (Colace Cap*) 100 mg PO BID [facility] Last Admin: 05/30/18 08:08 Dose: 100 mg Lactulose (Lactulose*) 30 ml PO Q6H PRN PRN Reason: constipation Magnesium Hydroxide (Milk Of Magnesia Liq*) 30 ml PO BID [facility] Last Admin: 05/30/18 08:08 Dose: 30 ml Magnesium Hydroxide (Milk Of Magnesia Liq*) 30 ml PO Q6H PRN PRN Reason: constipation Morphine Sulfate (Morphine Vial*) 2 mg IV Q2H PRN PRN Reason: PAIN - SEVERE Last Admin: 05/28/18 02:03 Dose: 2 mg Ondansetron HCl (Zofran Inj*) 4 mg IV Q6H PRN PRN Reason: nausea Oxycodone HCl (Roxycodone Tab*) 10 mg PO Q4H PRN PRN Reason: SEVERE PAIN Last Admin: 05/30/18 03:16 Dose: 10 mg Oxycodone/Acetaminophen (Percocet 5/325 Tab*) 1 tab PO Q4H PRN PRN Reason: PAIN Oxycodone/Acetaminophen (Percocet 5/325 Tab*) 2 tab PO Q4H PRN PRN Reason: PAIN Last Admin: 05/30/18 12:07 Dose: 2 tab Polyethylene Glycol/Electrolytes (Miralax*) 17 gm PO DAILY PRN PRN Reason: Constipation Last Admin: 05/29/18 12:51 Dose: 17 gm Vital Signs - 8 hr 05/30/18 05/30/18 05/30/18 05:21 05:47 08:00 Temperature Pulse Rate Respiratory 16 18 16 Rate Blood Pressure (mmHg) O2 Sat by Pulse 100 Oximetry 05/30/18 05/30/18 05/30/18 08:02 08:12 12:07 Temperature 97.9 F Pulse Rate 81 Respiratory 20 16 18 Rate Blood Pressure 136/81 (mmHg) O2 Sat by Pulse 100 Oximetry Oxygen Devices in Use Now: Nasal Cannula - 5L NC Appearance: 68 yo male A+O x3 in NAD Eyes: No Scleral Icterus, PERRLA Ears/Nose/Mouth/Throat: NL Teeth, Lips, Gums, Mucous Membranes Moist Neck: NL Appearance and Movements; NL JVP Respiratory: Symmetrical Chest Expansion and Respiratory Effort, Clear to Auscultation Cardiovascular: NL Sounds; No Murmurs; No JVD, RRR, No Edema Abdominal: NL Sounds; No Tenderness; No Distention Extremities: No Edema, No Clubbing, Cyanosis Skin: No Rash or Ulcers, No Nodules or Sclerosis Neurological: Alert and Oriented x 3, NL Sensation, NL Gait, NL Muscle Strength and Tone Lines/Tubes/Other Access: Clean, Dry and Intact Peripheral IV Nutrition: Taking PO's Result Diagrams: 05/30/18 06:27 05/30/18 06:27 Assess/Plan/Problems-Billing Assessment: 68 yo male with a 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 Rivas on 05/26/18 who haqd an acute psidoe of confusion and hypoxia found to have a pulmonary embolism. - Patient Problems (1) Status post left knee surgery Comment: - Dispo per Ortho POD #4 - WBAT - pain management, bowel regimen - PT (2) Pulmonary embolism Comment: - CTA showing large burden of predominant right side pulmonary emboli associated with pulmonary infarction - not a canidate for tpa d/t recent knee surgery. - Supplemental oxygen as needed; maintaining o2 sats >94% - Supratheraouetic INR from coumadin started after surgery - allow to drift down and start NOAC - pt & familiy decided which between eliquis and xarelto - TTE showing Ef 45-55% showing mild decreased LV function and and right ventricular global systolic function mildly reduced. - LE doppler negative - elevated troponins now trending down (3) Elevated troponin Comment: see above (4) DVT prophylaxis Comment: Hold in the setting of supratherapeutic INR check INR daily with plan to start NOAC when INR: xarelto <3 or Eliquis <2 (per uptodate - pharmacy agrees) (5) Full code status Status and Disposition: inpatient. continue telemetry monitoring. Allowing INR to drift with plan to start NOAC when appropriate.
--- NOTE | 2018-05-30 13:29 | ECHO ---
Patient: ANNAMARIA TUTTLE [facility] Rec#: [id number] : 1950 Date: 05/30/2018 Age: 68y Height: 188 cm / 74.0 in Weight: 110 kg / 242.4 lbs Sex: M BSA: 2.4 Room#: [facility] Admit Date#: 05/26/2018 Type: Inpatient Referring: Nita Evans Reading: Adolfo Boo MD Cer[employer] Processor: Niru Barillas RN RDCS CC: Leoncio Heredia MD Transthoracic Echocardiogram Indication: Pulmonary embolism BP: 142/82 HR: 89 Rhythm: NSR Findings History: Osteoarthritis, S/P left total knee arthroplasty 05/26/2018, developed post-op hypoxemia Technical Comments: The study is technically limited due to poor acoustic windows. The study was technically limited due to the patient's inability to lay in the left lateral decubitus position. Left Ventricle: The left ventricular chamber size is normal. Mild concentric left ventricular hypertrophy is observed. Mild global hypokinesis of the left ventricle is observed. There is mildly decreased left ventricular systolic function. The estimated ejection fraction is 45-50%. There is no consistent Doppler evidence of clinically significant diastolic dysfunction. Left Atrium: The left atrium is slightly dilated. Right Ventricle: The right ventricle is mildly dilated. The right ventricular global systolic function is mildly reduced. Right Atrium: The right atrium is not well visualized. Aortic Valve: The aortic valve is trileaflet. The aortic valve leaflets are mildly thickened. Systolic excursion of the aortic valve is normal. There is aortic annular calcification. There is no evidence of aortic regurgitation. There is no evidence of aortic stenosis. Mitral Valve: The mitral valve leaflets are mildly thickened. There is a trace of mitral regurgitation. There is no evidence of mitral stenosis. Tricuspid Valve: The tricuspid valve structure is not well visualized. There is trace tricuspid regurgitation. Unable to estimate the right ventricular systolic pressure. There is no tricuspid stenosis. Pulmonic Valve: The pulmonic valve structure is not well visualized. There is trace to mild pulmonic regurgitation. There is no pulmonic stenosis. Pericardium: There is no significant pericardial effusion. A pericardial fat pad is visualized. Aorta: There is no dilatation of the ascending aorta. The aortic arch is not well visualized. There is no dilation of the aortic root. Pulmonary Artery: The main pulmonary artery is not well visualized. Venous: The venous system is not well visualized. The inferior vena cava is not visualized. Summary: There was not any prior study for comparison. Conclusions Mild concentric left ventricular hypertrophy is observed. Mild global hypokinesis of the left ventricle is observed. There is mildly decreased left ventricular systolic function. The estimated ejection fraction is 45-50%. The right ventricular global systolic function is mildly reduced. Systolic excursion of the aortic valve is normal. There is no evidence of aortic stenosis. There is a trace of mitral regurgitation. There is trace tricuspid regurgitation. Unable to estimate the right ventricular systolic pressure. There is no significant pericardial effusion. Measurements Name Value Normal Range RVIDd (AP) 2D 3.1 cm (0.9 - 2.6) RVDdMajor (2D) 4.8 cm (2.2 - 4.4) IVSd (2D) 1.1 cm (0.6 - 1) LVPWd (2D) 1.1 cm (0.6 - 1) LVIDd (2D) 4.8 cm (3.6 - 5.4) LVIDs (2D) 3.6 cm - LV FS (2D) 25 % (25 - 45) Aortic Annulus 2.3 cm (1.4 - 2.6) Ao root diameter (2D) 3.5 cm (2.1 - 3.5) Ascending Ao 3.3 cm (2.1 - 3.4) LA dimension (AP) 2D 3.4 cm (2.3 - 3.8) LAd ISD 4CH 5.5 cm (2.9 - 5.3) LA ISD 4CH W 4.2 cm (2.5 - 4.5) Name Value Normal Range LA ESV BP (A/L) index 22.5 ml/m2 - Name Value Normal Range MV E-wave Vmax 0.56 m/sec - MV deceleration time 342 msec - MV A-wave Vmax 0.97 m/sec - MV E:A ratio 0.6 ratio - LV septal e' Vmax 0.07 m/sec - LV lateral e' Vmax 0.07 m/sec - LV E:e' septal ratio 8 ratio - LV E:e' lateral ratio 8 ratio - Name Value Normal Range AV Vmax 1.3 m/sec - AV VTI 23.5 cm - AV peak gradient 7 mmHg - AV mean gradient 4 mmHg - LVOT Vmax 0.92 m/sec - LVOT VTI 15.3 cm - LVOT peak gradient 3 mmHg - LVOT mean gradient 2 mmHg - Name Value Normal Range PV Vmax 0.8 m/sec -
[2018-05-30] MEDS: Cyclobenzaprine TAB* 10 MG PO PRN (20:48)
[2018-05-31] MEDS: Magnesium Hydroxide LIQ* 30 ML UDC PO SCH ×3 (08:26→20:59)
[2018-05-31] MEDS: oxyCODONE/Acetamin 5/325 MG* TAB PO PRN ×3 (08:26→19:55)
[2018-05-31] MEDS: Docusate CAP* 100 MG PO SCH ×2 (08:27→20:59)
--- NOTE | 2018-05-31 09:08 | PN ---
Subjective Date of Service: 05/31/18 Interval History: patient reports he would like to go home. His knee pain is improving everyday. He denies CP or SOB. Reports good appetite. Large BM this morning. Objective Active Medications: Bisacodyl (Dulcolax Supp*) 10 mg LA DAILY PRN PRN Reason: constipation Cyclobenzaprine HCl (Flexeril Tab*) 10 mg PO TID PRN PRN Reason: SPASMS Last Admin: 05/30/18 20:48 Dose: 10 mg Diphenhydramine HCl (Benadryl Iv*) 12.5 mg IV Q6H PRN PRN Reason: PRURITIS Docusate Sodium (Colace Cap*) 100 mg PO BID [facility] Last Admin: 05/31/18 08:27 Dose: 100 mg Lactulose (Lactulose*) 30 ml PO Q6H PRN PRN Reason: constipation Magnesium Hydroxide (Milk Of Magnesia Liq*) 30 ml PO BID [facility] Last Admin: 05/31/18 08:26 Dose: 30 ml Magnesium Hydroxide (Milk Of Magnesia Liq*) 30 ml PO Q6H PRN PRN Reason: constipation Morphine Sulfate (Morphine Vial*) 2 mg IV Q2H PRN PRN Reason: PAIN - SEVERE Last Admin: 05/28/18 02:03 Dose: 2 mg Ondansetron HCl (Zofran Inj*) 4 mg IV Q6H PRN PRN Reason: nausea Oxycodone HCl (Roxycodone Tab*) 10 mg PO Q4H PRN PRN Reason: SEVERE PAIN Last Admin: 05/30/18 20:48 Dose: 10 mg Oxycodone/Acetaminophen (Percocet 5/325 Tab*) 1 tab PO Q4H PRN PRN Reason: PAIN Oxycodone/Acetaminophen (Percocet 5/325 Tab*) 2 tab PO Q4H PRN PRN Reason: PAIN Last Admin: 05/31/18 08:26 Dose: 2 tab Polyethylene Glycol/Electrolytes (Miralax*) 17 gm PO DAILY PRN PRN Reason: Constipation Last Admin: 05/29/18 12:51 Dose: 17 gm Vital Signs - 8 hr 05/31/18 05/31/18 05/31/18 03:37 03:57 07:53 Temperature 99.5 F 98.5 F Pulse Rate 87 100 Respiratory 20 20 Rate Blood Pressure 138/73 132/81 (mmHg) O2 Sat by Pulse 90 97 92 Oximetry 05/31/18 08:26 Temperature Pulse Rate Respiratory 16 Rate Blood Pressure (mmHg) O2 Sat by Pulse Oximetry Oxygen Devices in Use Now: None Appearance: A+Ox3 68 yo male sitting up in bed in NAD Eyes: No Scleral Icterus, PERRLA Ears/Nose/Mouth/Throat: NL Teeth, Lips, Gums, Mucous Membranes Moist Neck: NL Appearance and Movements; NL JVP Respiratory: Symmetrical Chest Expansion and Respiratory Effort, Clear to Auscultation Cardiovascular: NL Sounds; No Murmurs; No JVD, RRR, No Edema Abdominal: NL Sounds; No Tenderness; No Distention, - - obese Extremities: No Edema, No Clubbing, Cyanosis Skin: No Rash or Ulcers, No Nodules or Sclerosis, - - left knee wrapped with CD+ I dressing - 2+ DP pulses b/l Neurological: Alert and Oriented x 3, NL Sensation, NL Muscle Strength and Tone Lines/Tubes/Other Access: Clean, Dry and Intact Peripheral IV Nutrition: Taking PO's Result Diagrams: 05/31/18 09:11 05/31/18 09:11 Assess/Plan/Problems-Billing Assessment: 68 yo male with a 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 Rivas on 05/26/18 who haqd an acute psidoe of confusion and hypoxia found to have a pulmonary embolism. - Patient Problems (1) Status post left knee surgery Comment: - Dispo per Ortho POD #5 - WBAT - pain management, bowel regimen - PT (2) Pulmonary embolism Comment: - post op PE - CTA showing large burden of predominant right side pulmonary emboli associated with pulmonary infarction - not a canidate for tpa d/t recent knee surgery. - Supplemental oxygen as needed; maintaining o2 sats >94% - Supratherapuetic INR from coumadin started after surgery - allow to drift down and start NOAC - pt & familiy dand pt has decided they want eliquis - risks and benefits were discussed with son Santhosh and the patient. They state understanding and give consent to strat Eliquis when INR is <2. - TTE showing Ef 45-55% showing mild decreased LV function and and right ventricular global systolic function mildly reduced. - LE doppler negative - elevated troponins now trending down (3) Elevated troponin Comment: see above (4) DVT prophylaxis Comment: Hold in the setting of supratherapeutic INR check INR daily with plan to start NOAC when INR: Eliquis <2 (per uptodate - pharmacy agrees) (5) Full code status Status and Disposition: inpatient. continue telemetry monitoring. Allowing INR to drift with plan to start NOAC when appropriate. Discussed with case management - if patient had good follow up to come to the lab everyday for an INR draw he could go home - if he continues to do well off oxygen.
[2018-05-31 09:32] LABS: ABS Basophils 0.1 10^3/ul (0-0.2); ABS Eosinophils 0.7 10^3/ul (0-0.6); ABS Lymphocytes 1.4 10^3/ul (1.0-4.8); ABS Monocytes 0.8 10^3/ul (0-0.8); ABS Neutrophils 7.7 10^3/ul (1.5-7.7); ABS Nucleated RBC 0 10^3/ul; Eosinophil % 6.1 % (0-6); Hematocrit 36 % (42-52); Hemoglobin 12.3 g/dl (14.0-18.0); Lymphocyte % 13.4 % (25-47); Mean Corpuscular HGB Conc 35 g/dl (31-36); Mean Corpuscular Hemoglobin 30 pg (27-31); Mean Corpuscular Volume 88 fL (80-94); Mean Platelet Volume 8.2 fL (7.4-10.4); Nucleated Red Blood Cells % 0; Platelet Count 283 10^3/ul (150-450); Red Blood Count 4.07 10^6/ul (4.00-5.40); Red Cell Distribution Width 14 % (10.5-15); White Blood Count 10.7 10^3/ul (3.5-10.8)
[2018-05-31 09:36] LABS: INR 4.33 (0.77-1.02)
[2018-05-31 09:45] LABS: BUN/Creatinine Ratio 17.6 (8-20); Calcium 8.5 mg/dL (8.6-10.3); EGFR Non-African American 105.8 (>60)
--- NOTE | 2018-05-31 10:55 | PN ---
Progress Note - Progress Note Date of Service: 05/31/18 SOAP: Subjective: []Patient seen and examined at bedside. Per self report he has a sinus infection and requests augmentin. Denies chest pain, shortness of breath, dizziness or nausea. Limited participation with PT, though completed activities were on room air today, maintaining an O2 sat of 96%. Objective: [] General: Well appearing, NAD LLE: Dressing changed, incision CDI without erythema or discharge. DF/PF intact , sensation intact distally, DP2+. Left calf is with nonpitting edema without tenderness, erythema or palpable cords Right calf supple and nontender without erythema, edema or palpable cords Assessment: [] 68 yo M pod 5 s/p LTKA with postop complication of PE Plan: continue anticoagulation per hospitalist group - INR above 4 currently. Will start NOAC when < 2 or 3 depending on agent chosen Sinus symptoms for eval by medicine pt/ot wbat lle Vital Signs Temp 98.5 F 05/31/18 07:53 Pulse 100 05/31/18 07:53 Resp 16 05/31/18 08:30 BP 132/81 05/31/18 07:53 Pulse Ox 92 05/31/18 07:53 Intake & Output 05/30/18 05/31/18 05/31/18 18:59 06:59 18:59 Intake Total 1665 500 Output Total 300 475 Balance 1365 25 Intake: Oral 1665 500 Output: Urine 300 475 Other: # Bowel Movements 0 1 Estimated Stool Amount Large Laboratory Last Values WBC 10.7 10^3/ul (3.5-10.8) 05/31/18 09:11 RBC 4.07 10^6/ul (4.00-5.40) 05/31/18 09:11 Hgb 12.3 g/dl (14.0-18.0) L 05/31/18 09:11 Hct 36 % (42-52) L 05/31/18 09:11 MCV 88 fL (80-94) 05/31/18 09:11 MCH 30 pg (27-31) 05/31/18 09:11 MCHC 35 g/dl (31-36) 05/31/18 09:11 RDW 14 % (10.5-15) 05/31/18 09:11 Plt Count 283 10^3/ul (150-450) 05/31/18 09:11 MPV 8.2 fL (7.4-10.4) 05/31/18 09:11 Neut % (Auto) 72.2 % (38-83) 05/31/18 09:11 Lymph % (Auto) 13.4 % (25-47) L 05/31/18 09:11 [place] % (Auto) 7.6 % (0-7) H 05/31/18 09:11 Eos % (Auto) 6.1 % (0-6) H 05/31/18 09:11 Baso % (Auto) 0.7 % (0-2) 05/31/18 09:11 Absolute Neuts (auto) 7.7 10^3/ul (1.5-7.7) 05/31/18 09:11 Absolute Lymphs (auto) 1.4 10^3/ul (1.0-4.8) 05/31/18 09:11 Absolute Monos (auto) 0.8 10^3/ul (0-0.8) 05/31/18 09:11 Absolute Eos (auto) 0.7 10^3/ul (0-0.6) H 05/31/18 09:11 Absolute Basos (auto) 0.1 10^3/ul (0-0.2) 05/31/18 09:11 Absolute Nucleated RBC 0 10^3/ul 05/31/18 09:11 Nucleated RBC % 0 05/31/18 09:11 INR (Anticoag Therapy) 4.33 (0.77-1.02) H 05/31/18 09:11 APTT 51.2 seconds (26.0-36.3) H 05/29/18 12:20 Patient Temperature Not Reportable 05/28/18 14:00 ABG pH 7.44 (7.35-7.45) 05/28/18 14:00 ABG pH (Temp Correct) Not Reportable 05/28/18 14:00 ABG pCO2 36 mmHg (35-45) 05/28/18 14:00 ABG pCO2 (Temp Corrct Not Reportable 05/28/18 14:00 ABG pO2 60 mmHg (80-100) L 05/28/18 14:00 ABG pO2 (Temp Correct Not Reportable 05/28/18 14:00 ABG HCO3 25.2 mmol/L (19-31) 05/28/18 14:00 ABG O2 Saturation 94.0 % (95-98) L 05/28/18 14:00 ABG Base Excess 0.7 (-2.0-2.0) 05/28/18 14:00 Respiration Rate Not Reportable 05/28/18 14:00 O2 Delivery Device n/c 05/28/18 14:00 Ventilator Type Not Reportable 05/28/18 14:00 Vent Mode Not Reportable 05/28/18 14:00 FiO2 28 05/28/18 14:00 Inspiratory Time Not Reportable 05/28/18 14:00 PEEP Not Reportable 05/28/18 14:00 Pressure Support Not Reportable 05/28/18 14:00 Pressure Control Not Reportable 05/28/18 14:00 EPAP Not Reportable 05/28/18 14:00 IPAP Not Reportable 05/28/18 14:00 BiPAP Not Reportable 05/28/18 14:00 Sodium 132 mmol/L (135-145) L 05/31/18 09:11 Potassium 4.0 mmol/L (3.5-5.0) 05/31/18 09:11 Chloride 103 mmol/L (101-111) 05/31/18 09:11 Carbon Dioxide 22 mmol/L (22-32) 05/31/18 09:11 Anion Gap 7 mmol/L (2-11) 05/31/18 09:11 BUN 13 mg/dL (6-24) 05/31/18 09:11 Creatinine 0.74 mg/dL (0.67-1.17) 05/31/18 09:11 Est GFR ( Amer) 128.0 (>60) 05/31/18 09:11 Est GFR (Non-Af Amer) 105.8 (>60) 05/31/18 09:11 BUN/Creatinine Ratio 17.6 (8-20) 05/31/18 09:11 Glucose 180 mg/dL (70-100) H 05/31/18 09:11 Calcium 8.5 mg/dL (8.6-10.3) L 05/31/18 09:11 Total Bilirubin 0.60 mg/dL (0.2-1.0) 11/17/18 18:25 AST 21 U/L (13-39) 05/28/18 18:25 ALT 17 U/L (7-52) 05/28/18 18:25 Alkaline Phosphatase 55 U/L (34-104) 05/28/18 18:25 Troponin I 0.16 ng/mL (<0.04) H* 05/29/18 01:43 B-Natriuretic Peptide 29 pg/mL (<=100) 05/28/18 18:25 Total Protein 6.2 g/dL (6.4-8.9) L 05/28/18 18:25 Albumin 3.3 g/dL (3.2-5.2) 05/28/18 18:25 Globulin 2.9 g/dL (2-4) 05/28/18 18:25 Albumin/Globulin Ratio 1.1 (1-3) 05/28/18 18:25
[2018-05-31] MEDS ORDERED: Saline NASAL SPRAY 0.65%* BTL BOTH NARES PRN (12:19)
[2018-05-31] MEDS: oxyCODONE TAB* 5 MG TAB PO PRN (20:59)
[2018-06-01] MEDS: oxyCODONE TAB* 5 MG TAB PO PRN ×2 (05:38→13:33)
[2018-06-01 06:19] LABS: Hematocrit 38 % (42-52); Hemoglobin 12.6 g/dl (14.0-18.0); Mean Corpuscular HGB Conc 33 g/dl (31-36); Mean Corpuscular Hemoglobin 30 pg (27-31); Mean Corpuscular Volume 90 fL (80-94); Platelet Count 280 10^3/ul (150-450); Red Cell Distribution Width 14 % (10.5-15); White Blood Count 10.1 10^3/ul (3.5-10.8)
[2018-06-01 06:26] LABS: INR 3.96 (0.77-1.02)
--- NOTE | 2018-06-01 06:31 | PN ---
Progress Note - Progress Note Date of Service: 06/01/18 SOAP: Subjective: []Patient seen and examined at bedside. He feels well today without complaints of knee pain, chest pain, shortness of breath, dizziness, nausea. VSS overnight, satting well on room air. INR remains elevated at 3.96 Objective: []General: Well appearing, NAD LLE: Dressing changed, incision CDI without erythema or discharge. DF/PF intact , sensation intact distally, DP2+. Calves supple and nontender without erythema or palpable cords. Left calf with mild edema Assessment: [] 68 yo M s/p LTKA with postop complication of PE Plan: continue anticoagulation per hospitalist group - INR 3.96 currently. Will start NOAC when < 2 or 3 depending on agent chosen pt/ot wbat lle Okay for DC from ortho standpoint as long as O2 sats stable on room air, asymptomatic and anticoag management plan in place. Will discuss plan for dc with medicine Vital Signs Temp 98.8 F 06/01/18 07:56 Pulse 87 06/01/18 07:56 Resp 20 06/01/18 08:53 BP 145/86 06/01/18 07:56 Pulse Ox 97 06/01/18 07:56 Intake & Output 05/31/18 06/01/18 06/01/18 18:59 06:59 18:59 Intake Total 655 340 Output Total 675 740 Balance -20 -400 Intake: Oral 655 340 Output: Urine 675 740 Other: # Bowel Movements 1 0 Estimated Stool Amount Large # Voids 3 Laboratory Last Values WBC 10.1 10^3/ul (3.5-10.8) 06/01/18 05:55 RBC 4.20 10^6/ul (4.00-5.40) 06/01/18 05:55 Hgb 12.6 g/dl (14.0-18.0) L 06/01/18 05:55 Hct 38 % (42-52) L 06/01/18 05:55 MCV 90 fL (80-94) 06/01/18 05:55 MCH 30 pg (27-31) 06/01/18 05:55 MCHC 33 g/dl (31-36) 06/01/18 05:55 RDW 14 % (10.5-15) 06/01/18 05:55 Plt Count 280 10^3/ul (150-450) 06/01/18 05:55 MPV 8.0 fL (7.4-10.4) 06/01/18 05:55 Neut % (Auto) 62.8 % (38-83) 06/01/18 05:55 Lymph % (Auto) 16.8 % (25-47) L 06/01/18 05:55 [place] % (Auto) 11.0 % (0-7) H 06/01/18 05:55 Eos % (Auto) 8.5 % (0-6) H 06/01/18 05:55 Baso % (Auto) 0.9 % (0-2) 06/01/18 05:55 Absolute Neuts (auto) 6.3 10^3/ul (1.5-7.7) 06/01/18 05:55 Absolute Lymphs (auto) 1.7 10^3/ul (1.0-4.8) 06/01/18 05:55 Absolute Monos (auto) 1.1 10^3/ul (0-0.8) H 06/01/18 05:55 Absolute Eos (auto) 0.9 10^3/ul (0-0.6) H 06/01/18 05:55 Absolute Basos (auto) 0.1 10^3/ul (0-0.2) 06/01/18 05:55 Absolute Nucleated RBC 0 10^3/ul 06/01/18 05:55 Nucleated RBC % 0 06/01/18 05:55 INR (Anticoag Therapy) 3.96 (0.77-1.02) H 06/01/18 05:55 APTT 51.2 seconds (26.0-36.3) H 05/29/18 12:20 Patient Temperature Not Reportable 05/28/18 14:00 ABG pH 7.44 (7.35-7.45) 05/28/18 14:00 ABG pH (Temp Correct) Not Reportable 05/28/18 14:00 ABG pCO2 36 mmHg (35-45) 05/28/18 14:00 ABG pCO2 (Temp Corrct Not Reportable 05/28/18 14:00 ABG pO2 60 mmHg (80-100) L 05/28/18 14:00 ABG pO2 (Temp Correct Not Reportable 05/28/18 14:00 ABG HCO3 25.2 mmol/L (19-31) 05/28/18 14:00 ABG O2 Saturation 94.0 % (95-98) L 05/28/18 14:00 ABG Base Excess 0.7 (-2.0-2.0) 05/28/18 14:00 Respiration Rate Not Reportable 05/28/18 14:00 O2 Delivery Device n/c 05/28/18 14:00 Ventilator Type Not Reportable 05/28/18 14:00 Vent Mode Not Reportable 05/28/18 14:00 FiO2 28 05/28/18 14:00 Inspiratory Time Not Reportable 05/28/18 14:00 PEEP Not Reportable 05/28/18 14:00 Pressure Support Not Reportable 05/28/18 14:00 Pressure Control Not Reportable 05/28/18 14:00 EPAP Not Reportable 05/28/18 14:00 IPAP Not Reportable 05/28/18 14:00 BiPAP Not Reportable 05/28/18 14:00 Sodium 136 mmol/L (135-145) 06/01/18 05:55 Potassium 4.2 mmol/L (3.5-5.0) 06/01/18 05:55 Chloride 105 mmol/L (101-111) 06/01/18 05:55 Carbon Dioxide 24 mmol/L (22-32) 06/01/18 05:55 Anion Gap 7 mmol/L (2-11) 06/01/18 05:55 BUN 17 mg/dL (6-24) 06/01/18 05:55 Creatinine 0.75 mg/dL (0.67-1.17) 06/01/18 05:55 Est GFR ( Amer) 126.1 (>60) 06/01/18 05:55 Est GFR (Non-Af Amer) 104.2 (>60) 06/01/18 05:55 BUN/Creatinine Ratio 22.7 (8-20) H 06/01/18 05:55 Glucose 107 mg/dL (70-100) H 06/01/18 05:55 Calcium 8.5 mg/dL (8.6-10.3) L 06/01/18 05:55 Total Bilirubin 0.60 mg/dL (0.2-1.0) 05/28/18 18:25 AST 21 U/L (13-39) 05/28/18 18:25 ALT 17 U/L (7-52) 05/28/18 18:25 Alkaline Phosphatase 55 U/L (34-104) 05/28/18 18:25 Troponin I 0.16 ng/mL (<0.04) H* 05/29/18 01:43 B-Natriuretic Peptide 29 pg/mL (<=100) 05/28/18 18:25 Total Protein 6.2 g/dL (6.4-8.9) L 05/28/18 18:25 Albumin 3.3 g/dL (3.2-5.2) 05/28/18 18:25 Globulin 2.9 g/dL (2-4) 05/28/18 18:25 Albumin/Globulin Ratio 1.1 (1-3) 05/28/18 18:25
[2018-06-01 07:01] LABS: ABS Basophils 0.1 10^3/ul (0-0.2); ABS Eosinophils 0.9 10^3/ul (0-0.6); ABS Lymphocytes 1.7 10^3/ul (1.0-4.8); ABS Monocytes 1.1 10^3/ul (0-0.8); ABS Neutrophils 6.3 10^3/ul (1.5-7.7); ABS Nucleated RBC 0 10^3/ul; Eosinophil % 8.5 % (0-6); Lymphocyte % 16.8 % (25-47); Nucleated Red Blood Cells % 0
[2018-06-01 07:39] LABS: Calcium 8.5 mg/dL (8.6-10.3); Potassium 4.2 mmol/L (3.5-5.0)
[2018-06-01 07:44] LABS: BUN/Creatinine Ratio 22.7 (8-20); EGFR Non-African American 104.2 (>60)
[2018-06-01] MEDS: Magnesium Hydroxide LIQ* 30 ML UDC PO SCH ×3 (08:53→20:45)
[2018-06-01] MEDS: oxyCODONE/Acetamin 5/325 MG* TAB PO PRN ×2 (08:53→20:01)
[2018-06-01] MEDS: Docusate CAP* 100 MG PO SCH ×2 (08:53→20:01)
[2018-06-01] MEDS: Cyclobenzaprine TAB* 10 MG PO PRN (10:17)
[2018-06-01] MEDS: Morphine VIAL* 4 MG/ML VIAL (1 ml vial) IV PRN (10:18)
--- NOTE | 2018-06-01 15:41 | PN ---
Subjective Date of Service: 06/01/18 Interval History: Mr. Cameron reports feeling well this morning. He has been up ambulating around the unit. Currently wearing cryopack. His pain is well managed and improving daily. Denies CP, SOB, N/V/D, dizziness. Family History: Unchanged from Admission Social History: Unchanged from Admission Past Medical History: Unchanged from Admission Objective Active Medications: Bisacodyl (Dulcolax Supp*) 10 mg MS DAILY PRN Cyclobenzaprine HCl (Flexeril Tab*) 10 mg PO TID PRN Diphenhydramine HCl (Benadryl Iv*) 12.5 mg IV Q6H PRN Docusate Sodium (Colace Cap*) 100 mg PO BID TRAVIS Lactulose (Lactulose*) 30 ml PO Q6H PRN Magnesium Hydroxide (Milk Of Magnesia Liq*) 30 ml PO BID TRAVIS Magnesium Hydroxide (Milk Of Magnesia Liq*) 30 ml PO Q6H PRN Morphine Sulfate (Morphine Vial*) 2 mg IV Q2H PRN Ondansetron HCl (Zofran Inj*) 4 mg IV Q6H PRN Oxycodone HCl (Roxycodone Tab*) 10 mg PO Q4H PRN Oxycodone/Acetaminophen (Percocet 5/325 Tab*) 1 tab PO Q4H PRN Oxycodone/Acetaminophen (Percocet 5/325 Tab*) 2 tab PO Q4H PRN Polyethylene Glycol/Electrolytes (Miralax*) 17 gm PO DAILY PRN Sodium Chloride (Sodium Chloride 0.65% Nasal Orwell*) 1 spray BOTH NARES Q4H PRN Vital Signs - 8 hr 06/01/18 06/01/18 06/01/18 07:40 07:56 08:00 Temperature 98.8 F Pulse Rate 87 Respiratory 20 20 20 Rate Blood Pressure 145/86 (mmHg) O2 Sat by Pulse 97 97 Oximetry 06/01/18 06/01/18 06/01/18 10:59 12:30 13:33 Temperature 97.8 F Pulse Rate 105 Respiratory 20 18 20 Rate Blood Pressure 132/88 (mmHg) O2 Sat by Pulse 95 Oximetry Oxygen Devices in Use Now: None Appearance: Middle-aged male sitting in chair in NAD Eyes: No Scleral Icterus Ears/Nose/Mouth/Throat: Mucous Membranes Moist Neck: NL Appearance and Movements; NL JVP, Trachea Midline Respiratory: Symmetrical Chest Expansion and Respiratory Effort, Clear to Auscultation Cardiovascular: NL Sounds; No Murmurs; No JVD, RRR Abdominal: NL Sounds; No Tenderness; No Distention Extremities: - - Mild nonpitting edema to LLE Skin: - - Surgical dressing intact to L knee Neurological: Alert and Oriented x 3 Lines/Tubes/Other Access: Clean, Dry and Intact Peripheral IV Nutrition: Taking PO's Result Diagrams: 06/01/18 05:55 06/01/18 05:55 Assess/Plan/Problems-Billing Assessment: 68 yo male with a 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 Rivas on 05/26/18 who had an acute episode of confusion and hypoxia found to have a pulmonary embolism. - Patient Problems (1) Status post left knee surgery Current Visit: Yes Status: Acute Code(s): Z98.890 - OTHER SPECIFIED POSTPROCEDURAL STATES SNOMED Code(s): 938291807 Comment: - Dispo per Ortho POD #6 - WBAT - pain management, bowel regimen - PT (2) Pulmonary embolism Current Visit: Yes Status: Acute Code(s): I26.99 - OTHER PULMONARY EMBOLISM WITHOUT ACUTE COR PULMONALE SNOMED Code(s): 48427683 Comment: - Post op PE - CTA showing large burden of predominant right side pulmonary emboli associated with pulmonary infarction; not a canidate for TPA d/t recent knee surgery - Supplemental oxygen as needed; maintaining O2 sats >94% - Supratherapuetic INR from coumadin started after surgery; allow to drift down and start eliquis; start eliquis when INR is <2 - TTE showing Ef 45-55% showing mild decreased LV function and and right ventricular global systolic function mildly reduced - LE doppler negative - Elevated troponins now trending down (3) Elevated troponin Current Visit: Yes Status: Acute Code(s): R74.8 - ABNORMAL LEVELS OF OTHER SERUM ENZYMES SNOMED Code(s): 657215391 Comment: - 2/2 PE (4) DVT prophylaxis Current Visit: Yes Status: Acute Code(s): BKD4721 - SNOMED Code(s): 311461450 Comment: - Hold in the setting of supratherapeutic INR (5) Full code status Current Visit: Yes Status: Acute Code(s): Z78.9 - OTHER SPECIFIED HEALTH STATUS SNOMED Code(s): 426376731 Status and Disposition: Inpatient. continue telemetry monitoring. Allowing INR to drift with plan to start NOAC when appropriate. Discussed with case management - if patient had good follow up to come to the lab everyday for an INR draw he could go home. Attending: Mayi Gordon
[2018-06-02] MEDS: oxyCODONE TAB* 5 MG TAB PO PRN (02:46)
[2018-06-02 05:56] LABS: Hematocrit 36 % (42-52); Hemoglobin 12.5 g/dl (14.0-18.0); Mean Corpuscular HGB Conc 35 g/dl (31-36); Mean Corpuscular Hemoglobin 31 pg (27-31); Mean Corpuscular Volume 88 fL (80-94); Mean Platelet Volume 7.7 fL (7.4-10.4); Platelet Count 330 10^3/ul (150-450); Red Cell Distribution Width 14 % (10.5-15); White Blood Count 9.9 10^3/ul (3.5-10.8)
[2018-06-02 06:06] LABS: INR 3.71 (0.77-1.02)
[2018-06-02 06:21] LABS: ABS Basophils 0.1 10^3/ul (0-0.2); ABS Eosinophils 0.8 10^3/ul (0-0.6); ABS Lymphocytes 1.5 10^3/ul (1.0-4.8); ABS Monocytes 1.1 10^3/ul (0-0.8); ABS Neutrophils 6.4 10^3/ul (1.5-7.7); ABS Nucleated RBC 0 10^3/ul
[2018-06-02 06:23] LABS: Immature Granulocytes 7 % (0-9); Lymphocytes % 17 % (25-47); Monocytes % 11 % (0-7); Myelocytes % 6 % (0-1); Neutrophil % 53 % (38-83); Promyelocytes % 1 %
[2018-06-02 06:24] LABS: ABS Neutrophils 7.6 10^3/ul (1.5-7.7)
[2018-06-02 06:25] LABS: ABS Basophils 0.1 10^3/ul (0-0.2); ABS Eosinophils 1.1 10^3/ul (0-0.6)
[2018-06-02] MEDS: Magnesium Hydroxide LIQ* 30 ML UDC PO SCH (08:15)
[2018-06-02] MEDS: Docusate CAP* 100 MG PO SCH (08:15)
[2018-06-02] MEDS: oxyCODONE/Acetamin 5/325 MG* TAB PO PRN ×2 (08:15→12:16)
[2018-06-02 09:16] VITALS: BP 143/81
--- NOTE | 2018-06-02 10:03 | PN ---
Progress Note - Progress Note Date of Service: 06/02/18 SOAP: Subjective: Patient seen and examined at bedside. He feels well today without complaints of knee pain, chest pain, shortness of breath, dizziness, nausea. Objective: []General: Well appearing, NAD LLE: Dressing changed, incision CDI without erythema or discharge. DF/PF intact , sensation intact distally, DP2+. Calves supple and nontender without erythema or palpable cords. Left calf with mild edema Vital Signs Temp 100.2 F 06/02/18 07:46 Pulse 86 06/02/18 07:46 Resp 18 06/02/18 08:15 BP 143/81 06/02/18 07:46 Pulse Ox 96 06/02/18 08:00 Intake & Output 06/01/18 06/02/18 06/02/18 18:59 06:59 18:59 Intake Total 1435 240 Output Total 550 300 Balance 885 -60 Intake: Oral 1435 240 Output: Urine 550 300 Other: # Voids 3 Assessment: [] 68 yo M s/p LTKA with postop complication of PE Plan: continue anticoagulation per hospitalist group -Hospitalist group plans to discharge the pt today. Will have INR draws daily until under 2 then start NOAC when < 2 or 3 depending on agent chosen pt/ot wbat lle Okay for DC from ortho standpoint as long as O2 sats stable on room air, asymptomatic and anticoag management plan in place. Will discuss plan for dc with medicine
--- NOTE | 2018-06-03 02:59 | DS ---
CC: Dr. Leoncio Heredia; Dr. Emi Rivas* DISCHARGE SUMMARY: DATE OF ADMISSION: 05/26/18 DATE OF DISCHARGE: 06/02/18 PRIMARY CARE PROVIDER: Dr. Leoncio Heredia. ORTHOPEDIC SURGEON: Dr. Emi Rivas. ATTENDING PHYSICIAN: Dr. Mayi Gordon* (dictated by Nila Godwin NP). PRIMARY DIAGNOSES: 1. Left total knee replacement. 2. Pulmonary embolism. 3. Elevated troponin. SECONDARY DIAGNOSIS: 1. Osteoarthritis. STUDIES WHILE IN THE HOSPITAL: 1. Knee x-ray on 05/26/18, reads as anatomic alignment of recently installed left knee prosthesis. 2. Chest thorax CTA on 05/28/18, reads as large burden of predominant right side pulmonary emboli. Associated pulmonary infarction involving the lateral basal segment of the right lower lobe. 3. Brain CT on 05/28/18, reads as no acute intracranial pathology. Mild mucosal thickening of the ethmoid sinuses. Other chronic findings noted in the body of the report. 4. EKG on 05/28/18, shows sinus tachycardia with a rate of 116. No ischemic changes. 5. EKG on 05/29/18, shows normal sinus rhythm with a rate of 86. No ischemic changes. 6. Transthoracic echocardiogram on 05/29/18, reads as mild concentric left ventricular hypertrophy is observed. Mild global hypokinesis of the left ventricle is observed. There is a mildly decreased left ventricular systolic function. The estimated ejection fraction is 45% to 50%. The right ventricular global systolic function is mildly reduced. Systolic excursion of the aortic valve is normal. There is no evidence of aortic stenosis. There is trace mitral regurgitation. There is trace tricuspid regurgitation. Unable to estimate the right ventricular systolic pressure. There is no significant pericardial effusion. 7. Left leg venous Doppler study on 05/29/18, reads as no acute findings. No evidence of deep vein thrombosis. HISTORY OF PRESENT ILLNESS AND HOSPITAL COURSE: Mr. 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 Rivas. Please see her PA' s history and physical for a complete summary of the events leading up to this hospitalization. The patient underwent an uneventful surgery on 05/26/18 and was thought to be recovering well. He was nearly discharged on 05/28/18, though he was then noted to have an acute episode of confusion and hypoxia and after imaging noted above, was ultimately found to have an acute pulmonary embolism. At that point, the hospitalist service intervened for acute PE management. Other imaging as noted above, transthoracic echocardiogram was essentially normal without right heart strain, and there was no evidence of DVT. The patient had been started on Coumadin after surgery and INR was as high as 6.33. The patient was transferred to the ICU when he was noted to have a PE, as it was felt as though his hypoxia could be improved with Vapotherm. He did have elevated troponins secondary to the pulmonary embolism, although no acute cardiac issues. The patient was not a candidate for tPA due to his recent surgery. He was later transferred back up to the floor and was monitored on telemetry with no noted arrhythmias. He was not placed on further anticoagulation due to his supratherapeutic INR. Options for anticoagulation were discussed with the patient and his family and ultimately they felt as though Eliquis would be their preference going forward. The patient continued to recover and was kept in the hospital for a few extra days due to his supratherapeutic INR and inability to start Eliquis. Per UpToDate recommendations, the patient was not started on Eliquis, as it is recommended that the INR be less than 2 before starting the patient on Eliquis. As of the day of discharge, his INR is 3.71. I have discussed this with the patient and his children and they understand that at this point the only rationale for keeping him in the hospital would be to monitor his INR. If was decided by the patient and his family that they would be able and willing to have daily blood draws to check his INR and with the intent of starting Eliquis when the INR is less than 2. The patient and his family are comfortable with this plan and understand the risk of bleeding related to the supratherapeutic INR, as well as the risk of further PE or DVT if he is not properly anticoagulated. Orthopedics cleared the patient for discharge from their standpoint. Mr. Cameron is stable for discharge today. Vital signs are as follows: Temp 98.7, heart rate 86, respiratory rate 16, oxygen saturation 96% on room air, blood pressure 143/81. DISCHARGE MEDICATIONS: New home medications: 1. Flexeril 10 mg p.o. t.i.d. p.r.n. muscle spasm. 2. Docusate 100 mg p.o. b.i.d. 3. Oxycodone and acetaminophen 5/325 mg 1 to 2 tabs p.o. q.4 hours p.r.n. pain. 4. Apixaban 10 mg p.o. b.i.d. x7 days, then 5 mg b.i.d. once INR is less than 2. Discontinued medication: 1. Augmentin. DISCHARGE PLAN: Mr. Cameron will be discharged to home. Activity per Orthopedics recommendation is: Weightbearing as tolerated. Continue physical therapy and occupational therapy exercises as shown. Wound care per Orthopedics recommendation is: Okay to shower on postop day 3. No bathing, swimming, or submerging wound. Use gentle soap and pat dry, cover with gauze, Lito wrap or tape. Call orthopedic office for increased drainage, redness, increased pain or fever. Diet will be regular as tolerated. Medications are noted above. The patient has been prescribed pain medications by Orthopedics including Flexeril and Percocet. He additionally has been prescribed docusate for bowel management. I spoke at length with the patient and his family regarding the need for daily INR checks. I have ordered daily outpatient INRs and have noted on the lab slips that the laboratory should notify the patient of his INR results daily. The patient has been instructed to start Eliquis when his INR is less than 2. He will start 10 mg twice daily for 1 week, then decrease to 5 mg twice daily. Visiting nurse services will do wound checks and the patient should continue physical therapy per Orthopedics recommendation. He will need to follow up with his primary care provider in 4 to 7 days and will need to follow up with Orthopedics per their recommendations. The patient has been instructed to return to the emergency room or nearest hospital for any worsening of symptoms, shortness of breath, lightheadedness, dizziness, chest discomfort, high fevers, chills, night sweats, loss of consciousness, or any other worrisome signs or symptoms. This was a summarized report of a complex medical history and hospital stay. For further details, please see the entire medical record. TIME SPENT: Approximately 45 minutes was spent on this discharge, greater than half of that time spent [id number] with the patient and his family discussing discharge plans and instructions. NILA GODWIN, VEGETABLE LOADER MACHINE OPERATOR [id number]/BROOKS #: [id number] ERVIN
== END 2018-06-02 12:58 | disposition home or self-care (01) | DRG 302 ==
LOC: AA 05-26 10:43 → SSU 05-26 20:47 → ICU 05-28 17:27 → MEDTELE 05-29 17:10
PROVIDERS: ADMIT Orthopaedic Surgery Adult Reconstructive Orthopaedic Surgery; ATTEND Hospitalist
PROC: 0SRD069 Replacement of Left Knee Joint with Oxidized Zirconium on Polyethylene Synthetic Substitute, Cemented, Open Approach (ICD-10-PCS; principal; 2018-05-26 14:00)
DX: M17.32 Unilateral post-traumatic osteoarthritis, left knee (principal); I26.99 Other pulmonary embolism without acute cor pulmonale; E66.9 Obesity, unspecified; J32.9 Chronic sinusitis, unspecified; M25.762 Osteophyte, left knee; I08.1 Rheumatic disorders of both mitral and tricuspid valves; M25.462 Effusion, left knee; Z88.2 Allergy status to sulfonamides; Z82.49 Family history of ischemic heart disease and other diseases of the circulatory system; Z82.3 Family history of stroke; Z83.3 Family history of diabetes mellitus; Z80.9 Family history of malignant neoplasm, unspecified; Z72.89 Other problems related to lifestyle; R79.1 Abnormal coagulation profile; R41.0 Disorientation, unspecified; R00.0 Tachycardia, unspecified; R09.02 Hypoxemia; Z79.01 Long term (current) use of anticoagulants; Z99.81 Dependence on supplemental oxygen; Z68.31 Body mass index [BMI] 31.0-31.9, adult
CPT/HCPCS: 36415; 36600; 70450; 71275; 80048; 80053; 82803; 83880; 84484; 85014; 85018; 85025; 85049; 85610; 85730; 87070; 87205; 88305; 88311; 93005; 93306; 93970; A9270-GY; C1776; J0690; J1100; J1644; J1650; J2250; J2270; J2405; J2795; J3010; Q9967